=== PATIENT | male | born 1980 | race Two or more races ===

== ENCOUNTER 2020-08-20 09:28 | Inpatient (IN) | payer OTHER ==
[~2020-08-20] VITALS: Ht 172.7 cm; Wt 79.7 kg
[2020-08-20] MEDS ORDERED: DexAMETHasone SOD PHOS 10MG/1ML VIAL INJ IV ONE (10:15)
[2020-08-20] MEDS ORDERED: DOXYCYCLINE 100MG/250ML 250 ML IV ONE (10:15)
[2020-08-20 10:24] LABS: Basophils # (auto) 0 10 ^3/uL (0-0.2); Basophils % (auto) 0.1 % (0.0-2.0); Eosinophils # (auto) 0 10 ^3/uL (0-0.8); Hematocrit 44.2 % (41.0-53.0); Hemoglobin 14.8 g/dL (13.5-17.5); Lymphocytes # (auto) 0.5 10 ^3/uL (0.4-5.4); Lymphocytes % (auto) 3.8 % (10.0-50.0); Mean Corpuscular Hemoglobin 29.8 pg (28.0-32.0); Mean Corpuscular Hgb Conc. 33.5 g/dL (32.0-36.0); Mean Corpuscular Volume 88.7 fL (80.0-100.0); Monocytes # (auto) 0.2 10 ^3/uL (0-1.3); Monocytes % (auto) 1.2 % (0.0-12.0); Neutrophils # (auto) 13.3 10 ^3/uL (1.6-8.6); Neutrophils % (auto) 94.9 % (37.0-80.0); Nucleated Red Blood Cells % 0.1 %; Platelet Count (auto) 207 10^3/uL (140-450); Red Blood Cells 4.98 10^6/uL (4.5-5.90); Red Cell Distribution Width 13.7 % (11.8-14.3); White Blood Cell 14.1 10^3/uL (4.4-10.8)
[2020-08-20 10:37] LABS: Anion Gap 6 (5-15); Blood Urea Nitrogen 19 mg/dL (7-18); Calcium 9.2 mg/dL (8.5-10.1); Carbon Dioxide 25 mmol/L (21-32); Chloride 108 mmol/L (98-107); Glucose 130 mg/dL (74-106); Potassium 3.9 mmol/L (3.5-5.1); Sodium 139 mmol/L (136-145)
[2020-08-20 10:44] LABS: Alanine Aminotransferase 129 U/L (16-61); Alkaline Phosphatase 106 U/L (45-117); Aspartate Aminotransferase 60 U/L (15-37); BUN/Creatinine Ratio 15.7; Bilirubin, Total 1.1 mg/dL (0.2-1.0); GFR African American 85 mL/min; GFR Non-African American 70 mL/min; Total Protein 8.2 g/dL (6.4-8.2)
[2020-08-20] MEDS ORDERED: MORPHINE SULF INJ 2 MG/ML SYRINGE 1ML IV PRN ×2 (11:30→12:15)
[2020-08-20] MEDS ORDERED: NITROGLYCERIN 0.4 MG SL TAB SL PRN (11:30)
[2020-08-20] MEDS ORDERED: REMDESIVIR PER PHARMACY 0 ML IV SCH (12:00)
[2020-08-20] MEDS ORDERED: TEMAZEPAM 15 MG CAP PO PRN (12:15)
[2020-08-20] MEDS ORDERED: PROMETHAZINE HCL 25 MG/ML 1ML IV PRN (12:15)
[2020-08-20] MEDS ORDERED: DEXTROSE (50%) 50ML SYRG IV PRN (12:15)
[2020-08-20] MEDS ORDERED: traMADol HCL 50 MG TAB PO PRN (12:15)
[2020-08-20] MEDS: SODIUM CHLORIDE 0.9% 1,000 ML IV SCH (14:00)
[2020-08-20] MEDS: ACCU-CHEK COMFORT CURVE STRIP VI SCH ×2 (18:11→21:51)
[2020-08-20] MEDS: FAMOTIDINE 20 MG TAB PO SCH (21:52)
[2020-08-20] MEDS: ENOXAPARIN SOD 40 MG/0.4 ML SYRINGE SC SCH (21:52)
[2020-08-20] MEDS: BUDESONIDE (INHALATION) 180 MCG IH IN SCH (22:00)
[2020-08-21 05:00] VITALS: BP 126/76
[2020-08-21] MEDS: ACETAMINOPHEN 500 MG TAB PO PRN (06:00)
[2020-08-21] MEDS: SODIUM CHLORIDE 0.9% 1,000 ML IV SCH (06:35)
[2020-08-21] MEDS: ACCU-CHEK COMFORT CURVE STRIP VI SCH (06:35)
[2020-08-21 09:00] VITALS: BP 121/81
[2020-08-21 09:09] LABS: Basophils # (auto) 0 10 ^3/uL (0-0.2); Basophils % (auto) 0.1 % (0.0-2.0); Eosinophils # (auto) 0 10 ^3/uL (0-0.8); Hematocrit 40.2 % (41.0-53.0); Hemoglobin 13.6 g/dL (13.5-17.5); Lymphocytes # (auto) 0.7 10 ^3/uL (0.4-5.4); Lymphocytes % (auto) 5.4 % (10.0-50.0); Mean Corpuscular Hemoglobin 30.2 pg (28.0-32.0); Mean Corpuscular Hgb Conc. 33.9 g/dL (32.0-36.0); Mean Corpuscular Volume 89.3 fL (80.0-100.0); Monocytes # (auto) 0.4 10 ^3/uL (0-1.3); Neutrophils % (auto) 91.5 % (37.0-80.0); Platelet Count (auto) 221 10^3/uL (140-450); Red Blood Cells 4.51 10^6/uL (4.5-5.90); Red Cell Distribution Width 13.9 % (11.8-14.3); White Blood Cell 13.1 10^3/uL (4.4-10.8)
[2020-08-21 09:28] LABS: Albumin 2.7 g/dL (3.4-5.0); Calcium 8.9 mg/dL (8.5-10.1); Potassium 4.2 mmol/L (3.5-5.1)
[2020-08-21 09:35] LABS: Bilirubin, Total 0.5 mg/dL (0.2-1.0); Total Protein 7.2 g/dL (6.4-8.2)
[2020-08-21] MEDS: BUDESONIDE (INHALATION) 180 MCG IH IN SCH ×2 (10:00→19:00)
[2020-08-21] MEDS: levoFLOXacin 500MG 100 ML IV SCH (10:12)
[2020-08-21] MEDS: DexAMETHasone SOD PHOS 10MG/1ML VIAL INJ IV SCH (10:13)
[2020-08-21] MEDS: ZINC SULFATE 220mg CAP or TAB PO SCH (10:13)
[2020-08-21] MEDS: ENOXAPARIN SOD 40 MG/0.4 ML SYRINGE SC SCH ×2 (10:13→21:06)
[2020-08-21] MEDS: ASCORBIC ACID 1,000 MG TAB PO SCH (10:14)
[2020-08-21] MEDS: FAMOTIDINE 20 MG TAB PO SCH ×2 (10:14→21:06)
[2020-08-21] MEDS: CHOLECALCIFEROL (VITD3) 2,000 UNIT CAP PO SCH (10:14)
[2020-08-21] MEDS ORDERED: REMDESIVIR PER PHARMACY 0 ML IV SCH (11:15)
[2020-08-21 12:00] VITALS: BP 131/79
[2020-08-21 13:00] VITALS: BP 131/79
[2020-08-21] MEDS ORDERED: POTASSIUM CHL 20 Meq TABLET PO ONE (13:30)
[2020-08-21] MEDS ORDERED: FUROSEMIDE 20 MG/2 ML VIAL IV ONE (13:30)
[2020-08-21] MEDS ORDERED: REMDESIVIR 200 MG in NS 210ml LOADING DOSE ADULT IV ONE (15:00)
[2020-08-21 16:25] LABS: Basophils # (auto) 0 10 ^3/uL (0-0.2); Basophils % (auto) 0.1 % (0.0-2.0); Eosinophils # (auto) 0 10 ^3/uL (0-0.8); Hemoglobin 15.4 g/dL (13.5-17.5); Lymphocytes # (auto) 0.9 10 ^3/uL (0.4-5.4); Lymphocytes % (auto) 5.7 % (10.0-50.0); Mean Corpuscular Hemoglobin 30.5 pg (28.0-32.0); Mean Corpuscular Hgb Conc. 34.2 g/dL (32.0-36.0); Mean Corpuscular Volume 89.2 fL (80.0-100.0); Monocytes # (auto) 0.3 10 ^3/uL (0-1.3); Monocytes % (auto) 2.3 % (0.0-12.0); Neutrophils # (auto) 14.1 10 ^3/uL (1.6-8.6); Neutrophils % (auto) 91.9 % (37.0-80.0); Nucleated Red Blood Cells % 0.1 %; Platelet Count (auto) 288 10^3/uL (140-450); Red Blood Cells 5.04 10^6/uL (4.5-5.90); Red Cell Distribution Width 13.8 % (11.8-14.3); White Blood Cell 15.3 10^3/uL (4.4-10.8)
[2020-08-21 17:00] VITALS: BP 106/73
[2020-08-21 22:00] VITALS: BP 120/79
[2020-08-22 05:00] VITALS: BP 126/86
[2020-08-22] MEDS: BUDESONIDE (INHALATION) 180 MCG IH IN SCH ×2 (06:31→22:00)
[2020-08-22 06:55] LABS: INR 1.14 (0.9-1.15); Partial Thromboplastin Time 28.4 sec (23.0-31.2)
[2020-08-22 07:12] LABS: Albumin 2.9 g/dL (3.4-5.0); Calcium 9.1 mg/dL (8.5-10.1); Potassium 4.4 mmol/L (3.5-5.1)
[2020-08-22 07:15] LABS: BUN/Creatinine Ratio 32.6
[2020-08-22 07:17] LABS: Bilirubin, Total 0.6 mg/dL (0.2-1.0); Total Protein 7.9 g/dL (6.4-8.2)
[2020-08-22 09:00] VITALS: BP 145/81
[2020-08-22] MEDS: levoFLOXacin 500MG 100 ML IV SCH (09:53)
[2020-08-22] MEDS: DexAMETHasone SOD PHOS 10MG/1ML VIAL INJ IV SCH (09:53)
[2020-08-22] MEDS: ZINC SULFATE 220mg CAP or TAB PO SCH (09:53)
[2020-08-22] MEDS: CHOLECALCIFEROL (VITD3) 2,000 UNIT CAP PO SCH (09:54)
[2020-08-22] MEDS: FAMOTIDINE 20 MG TAB PO SCH ×2 (09:54→22:30)
[2020-08-22] MEDS: ENOXAPARIN SOD 40 MG/0.4 ML SYRINGE SC SCH ×2 (09:54→22:30)
[2020-08-22] MEDS: ASCORBIC ACID 1,000 MG TAB PO SCH (09:54)
[2020-08-22] MEDS: ACETAMINOPHEN 500 MG TAB PO PRN ×2 (09:55→22:31)
[2020-08-22 13:00] VITALS: BP 127/80
[2020-08-22] MEDS: REMDESIVIR 100 MG in SODIUM CHL 0.9% 250 ML IV SCH (16:46)
[2020-08-22 17:00] VITALS: BP 125/78
[2020-08-22 21:44] VITALS: BP 135/77
[2020-08-23 05:12] VITALS: BP 106/70
[2020-08-23 07:05] LABS: Hematocrit 46.9 % (41.0-53.0); Hemoglobin 15.8 g/dL (13.5-17.5); Mean Corpuscular Hemoglobin 30.1 pg (28.0-32.0); Mean Corpuscular Hgb Conc. 33.7 g/dL (32.0-36.0); Mean Corpuscular Volume 89.3 fL (80.0-100.0); Platelet Count (auto) 278 10^3/uL (140-450); Red Blood Cells 5.25 10^6/uL (4.5-5.90); Red Cell Distribution Width 14.1 % (11.8-14.3); White Blood Cell 14.5 10^3/uL (4.4-10.8)
[2020-08-23 07:30] LABS: Basophils % (manual) 0 (0.0-2.0); Blast Cells 0; Eosinophils % (manual) 0 (0-7); Promyelocytes % 0; Reactive Lymphocytes 0
[2020-08-23 07:37] LABS: Calcium 9.5 mg/dL (8.5-10.1)
[2020-08-23 07:42] LABS: BUN/Creatinine Ratio 32.7; Bilirubin, Total 0.8 mg/dL (0.2-1.0); Potassium 4.3 mmol/L (3.5-5.1); Total Protein 8.1 g/dL (6.4-8.2)
[2020-08-23] MEDS: ALBUTEROL SULF HFA 90MCG INH 200DOSE IN PRN (08:27)
[2020-08-23] MEDS: BUDESONIDE (INHALATION) 180 MCG IH IN SCH ×2 (08:27→22:00)
[2020-08-23 09:00] VITALS: BP 96/55
[2020-08-23] MEDS: DexAMETHasone SOD PHOS 10MG/1ML VIAL INJ IV SCH (10:14)
[2020-08-23] MEDS: ZINC SULFATE 220mg CAP or TAB PO SCH (10:16)
[2020-08-23] MEDS: ASCORBIC ACID 1,000 MG TAB PO SCH (10:16)
[2020-08-23] MEDS: levoFLOXacin 500MG 100 ML IV SCH (10:16)
[2020-08-23] MEDS: FAMOTIDINE 20 MG TAB PO SCH ×2 (10:16→22:05)
[2020-08-23] MEDS: CHOLECALCIFEROL (VITD3) 2,000 UNIT CAP PO SCH (10:16)
[2020-08-23] MEDS: ENOXAPARIN SOD 40 MG/0.4 ML SYRINGE SC SCH ×2 (10:16→22:05)
[2020-08-23 12:50] LABS: Band Neutrophils % (manual) 2; Lymphocytes % (manual) 9 (10.0-50.0); Metamyelocytes % 3; Monocytes % (manual) 6 (0-12); Myelocytes % 3
[2020-08-23 13:14] VITALS: BP 93/59
[2020-08-23] MEDS: REMDESIVIR 100 MG in SODIUM CHL 0.9% 250 ML IV SCH (16:12)
[2020-08-23 16:50] VITALS: BP 108/75
[2020-08-23] MEDS: ENSURE CLEAR Mixed Berry 8oz Carton PO SCH (18:00)
[2020-08-23 21:58] VITALS: BP 102/74
[2020-08-24 05:24] VITALS: BP 102/62
[2020-08-24] MEDS: BUDESONIDE (INHALATION) 180 MCG IH IN SCH ×2 (06:32→22:00)
[2020-08-24] MEDS: ALBUTEROL SULF HFA 90MCG INH 200DOSE IN PRN (06:32)
[2020-08-24 07:05] LABS: Hematocrit 45.4 % (41.0-53.0); Hemoglobin 15.4 g/dL (13.5-17.5); Mean Corpuscular Hemoglobin 30.2 pg (28.0-32.0); Platelet Count (auto) 276 10^3/uL (140-450); White Blood Cell 16.4 10^3/uL (4.4-10.8)
[2020-08-24 07:23] LABS: Potassium 4.4 mmol/L (3.5-5.1)
[2020-08-24 07:24] LABS: Basophils % (manual) 0 (0.0-2.0); Blast Cells 0; Promyelocytes % 0; Reactive Lymphocytes 0
[2020-08-24 07:40] LABS: Albumin 2.8 g/dL (3.4-5.0); BUN/Creatinine Ratio 30.1; Bilirubin, Total 0.8 mg/dL (0.2-1.0); Calcium 9.2 mg/dL (8.5-10.1); Total Protein 7.7 g/dL (6.4-8.2)
[2020-08-24] MEDS: ENSURE CLEAR Mixed Berry 8oz Carton PO SCH ×3 (08:00→18:00)
[2020-08-24 08:35] VITALS: BP 99/64
[2020-08-24 08:56] LABS: Band Neutrophils % (manual) 1; Eosinophils % (manual) 1 (0-7); Lymphocytes % (manual) 10 (10.0-50.0); Metamyelocytes % 5; Monocytes % (manual) 2 (0-12); Myelocytes % 3
[2020-08-24] MEDS: ENOXAPARIN SOD 40 MG/0.4 ML SYRINGE SC SCH (09:18)
[2020-08-24] MEDS: FAMOTIDINE 20 MG TAB PO SCH ×2 (09:18→21:51)
[2020-08-24] MEDS: DexAMETHasone SOD PHOS 10MG/1ML VIAL INJ IV SCH (09:18)
[2020-08-24] MEDS: ZINC SULFATE 220mg CAP or TAB PO SCH (09:19)
[2020-08-24] MEDS: levoFLOXacin 500MG 100 ML IV SCH (09:19)
[2020-08-24] MEDS: ASCORBIC ACID 1,000 MG TAB PO SCH (09:19)
[2020-08-24] MEDS: CHOLECALCIFEROL (VITD3) 2,000 UNIT CAP PO SCH (09:20)
[2020-08-24 13:00] VITALS: BP 104/68
[2020-08-24] MEDS ORDERED: POTASSIUM CHL 20 Meq TABLET PO ONE (14:00)
[2020-08-24] MEDS ORDERED: FUROSEMIDE 20 MG/2 ML VIAL IV ONE (14:00)
[2020-08-24 16:00] VITALS: BP 103/62
[2020-08-24] MEDS: REMDESIVIR 100 MG in SODIUM CHL 0.9% 250 ML IV SCH (17:54)
[2020-08-24] MEDS: ENOXAPARIN SOD 80 MG/0.8ML SYRINGE SC SCH (21:51)
[2020-08-24 22:00] VITALS: BP 107/65
[2020-08-25] VITALS (8 sets, daily range): BP systolic 96–118; BP diastolic 58–75
[2020-08-25 07:26] LABS: Hematocrit 46.8 % (41.0-53.0); Hemoglobin 15.7 g/dL (13.5-17.5); Mean Corpuscular Hemoglobin 29.9 pg (28.0-32.0); Mean Corpuscular Hgb Conc. 33.5 g/dL (32.0-36.0); Mean Corpuscular Volume 89.2 fL (80.0-100.0); Platelet Count (auto) 275 10^3/uL (140-450); Red Blood Cells 5.25 10^6/uL (4.5-5.90); Red Cell Distribution Width 13.9 % (11.8-14.3); White Blood Cell 17.4 10^3/uL (4.4-10.8)
[2020-08-25 07:37] LABS: Calcium 8.8 mg/dL (8.5-10.1); Potassium 3.8 mmol/L (3.5-5.1)
[2020-08-25 07:39] LABS: BUN/Creatinine Ratio 29.2
[2020-08-25 07:49] LABS: Basophils % (manual) 0 (0.0-2.0); Eosinophils % (manual) 0 (0-7); Metamyelocytes % 0; Promyelocytes % 0; Reactive Lymphocytes 0
[2020-08-25] MEDS: ENSURE CLEAR Mixed Berry 8oz Carton PO SCH ×3 (08:00→18:21)
[2020-08-25] MEDS: DexAMETHasone SOD PHOS 10MG/1ML VIAL INJ IV SCH ×2 (09:48→21:44)
[2020-08-25] MEDS: levoFLOXacin 500MG 100 ML IV SCH (09:50)
[2020-08-25] MEDS: FUROSEMIDE 20 MG/2 ML VIAL IV SCH (09:51)
[2020-08-25] MEDS: CHOLECALCIFEROL (VITD3) 2,000 UNIT CAP PO SCH (09:52)
[2020-08-25] MEDS: ENOXAPARIN SOD 80 MG/0.8ML SYRINGE SC SCH ×2 (09:52→21:44)
[2020-08-25] MEDS: ASCORBIC ACID 1,000 MG TAB PO SCH (09:52)
[2020-08-25] MEDS: FAMOTIDINE 20 MG TAB PO SCH (09:53)
[2020-08-25] MEDS: POTASSIUM CHL 20 Meq TABLET PO SCH (09:54)
[2020-08-25] MEDS: ZINC SULFATE 220mg CAP or TAB PO SCH (09:54)
[2020-08-25] MEDS: ACETAMINOPHEN 500 MG TAB PO PRN (09:55)
[2020-08-25 11:13] LABS: Band Neutrophils % (manual) 7; Blast Cells 1; Lymphocytes % (manual) 5 (10.0-50.0); Monocytes % (manual) 2 (0-12); Myelocytes % 1
[2020-08-25] MEDS: REMDESIVIR 100 MG in SODIUM CHL 0.9% 250 ML IV SCH (16:28)
[2020-08-25 17:26] LABS: CRP High Sensitivity 18.7 mg/dL (< 0.3)
[2020-08-25 17:36] LABS: Urine Bacteria NONE SEEN /hpf (None Seen); Urine Blood Negative /uL (Negative); Urine Specific Gravity 1.028 (1.001-1.035); Urine WBC <1 /hpf (0 - 3)
[2020-08-25] MEDS: BUDESONIDE (INHALATION) 180 MCG IH IN SCH (19:16)
[2020-08-25] MEDS: ALBUTEROL SULF HFA 90MCG INH 200DOSE IN PRN (19:17)
[2020-08-25] MEDS ORDERED: methylPREDNISolone SOD SUCC 40 MG/ML VL IV ONE (20:00)
[2020-08-25] MEDS ORDERED: ACETAMINOPHEN 650 mg PER 20.3 mL UD PO ONE (20:00)
[2020-08-25] MEDS ORDERED: diphenhdrAMINE HCL 50 MG/1 ML VL IV ONE (20:00)
[2020-08-25] MEDS ORDERED: TOCILIZUMAB 400 MG in SODIUM CHL 0.9% 80 ML IV ONE (20:30)
[2020-08-25] MEDS: FAMOTIDINE (10MG/ML) 2ML VL IV SCH (21:44)
[2020-08-26 04:00] VITALS: BP 100/72
[2020-08-26] MEDS: ENSURE CLEAR Mixed Berry 8oz Carton PO SCH ×3 (08:00→17:53)
[2020-08-26] MEDS ORDERED: diphenhdrAMINE HCL 50 MG/1 ML VL IV ONE (08:30)
[2020-08-26] MEDS ORDERED: ACETAMINOPHEN 650 mg PER 20.3 mL UD PO ONE (08:30)
[2020-08-26] MEDS ORDERED: methylPREDNISolone SOD SUCC 40 MG/ML VL IV ONE (08:30)
[2020-08-26 09:00] VITALS: BP 100/62
[2020-08-26] MEDS ORDERED: TOCILIZUMAB 400 MG in SODIUM CHL 0.9% 80 ML IV ONE (09:00)
[2020-08-26] MEDS: BUDESONIDE (INHALATION) 180 MCG IH IN SCH ×2 (10:00→19:36)
[2020-08-26] MEDS: FUROSEMIDE 20 MG/2 ML VIAL IV SCH (11:30)
[2020-08-26] MEDS: levoFLOXacin 500MG 100 ML IV SCH (11:58)
[2020-08-26] MEDS: FAMOTIDINE (10MG/ML) 2ML VL IV SCH ×2 (11:59→22:07)
[2020-08-26] MEDS: DexAMETHasone SOD PHOS 10MG/1ML VIAL INJ IV SCH ×2 (11:59→22:07)
[2020-08-26] MEDS: ENOXAPARIN SOD 80 MG/0.8ML SYRINGE SC SCH ×2 (12:00→22:07)
[2020-08-26] MEDS: POTASSIUM CHL 20 Meq TABLET PO SCH (12:00)
[2020-08-26] MEDS: ZINC SULFATE 220mg CAP or TAB PO SCH (12:01)
[2020-08-26] MEDS: CHOLECALCIFEROL (VITD3) 2,000 UNIT CAP PO SCH (12:01)
[2020-08-26] MEDS: ASCORBIC ACID 1,000 MG TAB PO SCH (12:01)
[2020-08-26 13:00] VITALS: BP 91/54
[2020-08-26 17:00] VITALS: BP 104/75
[2020-08-26] MEDS: ALBUTEROL SULF HFA 90MCG INH 200DOSE IN PRN (19:36)
[2020-08-26 21:00] VITALS: BP 119/77
[2020-08-27 06:50] LABS: Hematocrit 47.4 % (41.0-53.0); Hemoglobin 15.6 g/dL (13.5-17.5); Mean Corpuscular Hemoglobin 29.3 pg (28.0-32.0); Mean Corpuscular Hgb Conc. 32.9 g/dL (32.0-36.0); Mean Corpuscular Volume 89.2 fL (80.0-100.0); Platelet Count (auto) 355 10^3/uL (140-450); Red Blood Cells 5.31 10^6/uL (4.5-5.90); Red Cell Distribution Width 13.9 % (11.8-14.3); White Blood Cell 13.1 10^3/uL (4.4-10.8)
[2020-08-27 07:19] LABS: Basophils % (manual) 0 (0.0-2.0); Blast Cells 0; Eosinophils % (manual) 0 (0-7); Myelocytes % 0; Promyelocytes % 0; Reactive Lymphocytes 0
[2020-08-27] MEDS: ALBUTEROL SULF HFA 90MCG INH 200DOSE IN PRN ×2 (07:24→21:10)
[2020-08-27] MEDS: BUDESONIDE (INHALATION) 180 MCG IH IN SCH ×2 (07:24→21:10)
[2020-08-27 07:38] LABS: BUN/Creatinine Ratio 32.3; Calcium 9.1 mg/dL (8.5-10.1); Potassium 4.8 mmol/L (3.5-5.1)
[2020-08-27 08:00] VITALS: BP 100/59
[2020-08-27] MEDS: ENSURE CLEAR Mixed Berry 8oz Carton PO SCH ×3 (08:00→18:00)
[2020-08-27] MEDS: POTASSIUM CHL 20 Meq TABLET PO SCH (10:00)
[2020-08-27] MEDS: CHOLECALCIFEROL (VITD3) 2,000 UNIT CAP PO SCH (10:00)
[2020-08-27] MEDS: DexAMETHasone SOD PHOS 10MG/1ML VIAL INJ IV SCH ×2 (11:34→20:32)
[2020-08-27] MEDS: FUROSEMIDE 20 MG/2 ML VIAL IV SCH (11:35)
[2020-08-27] MEDS: ASCORBIC ACID 1,000 MG TAB PO SCH (11:36)
[2020-08-27] MEDS: levoFLOXacin 500MG 100 ML IV SCH (11:36)
[2020-08-27] MEDS: FAMOTIDINE (10MG/ML) 2ML VL IV SCH ×2 (11:36→20:32)
[2020-08-27] MEDS: ENOXAPARIN SOD 80 MG/0.8ML SYRINGE SC SCH ×2 (11:37→20:32)
[2020-08-27] MEDS: ZINC SULFATE 220mg CAP or TAB PO SCH (11:38)
[2020-08-27 12:24] LABS: Band Neutrophils % (manual) 9; Lymphocytes % (manual) 5 (10.0-50.0); Metamyelocytes % 1; Monocytes % (manual) 3 (0-12)
[2020-08-27 16:00] VITALS: BP 104/58
[2020-08-27 20:00] VITALS: BP 95/58
[2020-08-27 21:53] VITALS: BP 95/58
[2020-08-28 05:00] VITALS: BP 99/68
[2020-08-28] MEDS: ENSURE CLEAR Mixed Berry 8oz Carton PO SCH ×3 (08:00→19:41)
[2020-08-28 09:28] VITALS: BP 101/54
[2020-08-28] MEDS: levoFLOXacin 500MG 100 ML IV SCH (10:01)
[2020-08-28] MEDS: ZINC SULFATE 220mg CAP or TAB PO SCH (10:01)
[2020-08-28] MEDS: ENOXAPARIN SOD 80 MG/0.8ML SYRINGE SC SCH ×2 (10:01→21:25)
[2020-08-28] MEDS: POTASSIUM CHL 20 Meq TABLET PO SCH (10:01)
[2020-08-28] MEDS: DexAMETHasone SOD PHOS 10MG/1ML VIAL INJ IV SCH ×2 (10:02→21:25)
[2020-08-28] MEDS: FUROSEMIDE 20 MG/2 ML VIAL IV SCH (10:04)
[2020-08-28] MEDS: FAMOTIDINE (10MG/ML) 2ML VL IV SCH ×2 (10:06→21:25)
[2020-08-28] MEDS: ASCORBIC ACID 1,000 MG TAB PO SCH (10:09)
[2020-08-28] MEDS: CHOLECALCIFEROL (VITD3) 2,000 UNIT CAP PO SCH (10:10)
[2020-08-28 16:22] VITALS: BP 81/51
[2020-08-28 17:15] VITALS: BP 97/51
[2020-08-28] MEDS: BUDESONIDE (INHALATION) 180 MCG IH IN SCH (22:00)
[2020-08-28 22:42] VITALS: BP 99/61
[2020-08-29 04:41] VITALS: BP 93/59
[2020-08-29 06:00] LABS: Basophils # (auto) 0 10 ^3/uL (0-0.2); Basophils % (auto) 0.1 % (0.0-2.0); Eosinophils # (auto) 0 10 ^3/uL (0-0.8); Eosinophils % (auto) 0.4 % (0.0-7.0); Lymphocytes # (auto) 0.5 10 ^3/uL (0.4-5.4); Lymphocytes % (auto) 6.7 % (10.0-50.0); Mean Corpuscular Hemoglobin 30.5 pg (28.0-32.0); Mean Corpuscular Hgb Conc. 34.1 g/dL (32.0-36.0); Mean Corpuscular Volume 89.5 fL (80.0-100.0); Monocytes # (auto) 0.2 10 ^3/uL (0-1.3); Monocytes % (auto) 2.4 % (0.0-12.0); Neutrophils # (auto) 7.2 10 ^3/uL (1.6-8.6); Neutrophils % (auto) 90.4 % (37.0-80.0); Platelet Count (auto) 314 10^3/uL (140-450); Red Blood Cells 4.92 10^6/uL (4.5-5.90); Red Cell Distribution Width 13.7 % (11.8-14.3)
[2020-08-29 06:26] LABS: Potassium 3.8 mmol/L (3.5-5.1)
[2020-08-29 06:37] LABS: Albumin 2.4 g/dL (3.4-5.0); BUN/Creatinine Ratio 37.2; Bilirubin, Total 0.6 mg/dL (0.2-1.0); Calcium 8.7 mg/dL (8.5-10.1); Total Protein 6.4 g/dL (6.4-8.2)
[2020-08-29] MEDS: BUDESONIDE (INHALATION) 180 MCG IH IN SCH ×3 (07:40→22:00)
[2020-08-29 08:00] VITALS: BP 94/59
[2020-08-29] MEDS: ENSURE CLEAR Mixed Berry 8oz Carton PO SCH ×2 (09:26→12:00)
[2020-08-29] MEDS: DexAMETHasone SOD PHOS 10MG/1ML VIAL INJ IV SCH ×2 (09:53→22:24)
[2020-08-29] MEDS: FUROSEMIDE 20 MG/2 ML VIAL IV SCH (09:53)
[2020-08-29] MEDS: FAMOTIDINE (10MG/ML) 2ML VL IV SCH ×2 (09:54→22:23)
[2020-08-29] MEDS: ASCORBIC ACID 1,000 MG TAB PO SCH (09:54)
[2020-08-29] MEDS: ZINC SULFATE 220mg CAP or TAB PO SCH (09:54)
[2020-08-29] MEDS: CHOLECALCIFEROL (VITD3) 2,000 UNIT CAP PO SCH (09:54)
[2020-08-29] MEDS: ENOXAPARIN SOD 80 MG/0.8ML SYRINGE SC SCH ×2 (09:55→22:23)
[2020-08-29] MEDS: levoFLOXacin 500MG 100 ML IV SCH (09:55)
[2020-08-29] MEDS: POTASSIUM CHL 20 Meq TABLET PO SCH (09:58)
[2020-08-29 16:00] VITALS: BP 103/62
[2020-08-30] VITALS: BP 89/50
[2020-08-30] MEDS: ENSURE CLEAR Mixed Berry 8oz Carton PO SCH ×4 (07:27→18:32)
[2020-08-30 07:50] VITALS: BP_SYST 140; BP_SYST 90; BP_DIAS 59; BP_DIAS 86
[2020-08-30] MEDS: BUDESONIDE (INHALATION) 180 MCG IH IN SCH (09:38)
[2020-08-30] MEDS: levoFLOXacin 500MG 100 ML IV SCH (09:40)
[2020-08-30] MEDS: FUROSEMIDE 20 MG/2 ML VIAL IV SCH (09:40)
[2020-08-30] MEDS: DexAMETHasone SOD PHOS 10MG/1ML VIAL INJ IV SCH ×2 (09:40→21:06)
[2020-08-30] MEDS: ENOXAPARIN SOD 80 MG/0.8ML SYRINGE SC SCH ×2 (09:41→21:07)
[2020-08-30] MEDS: ZINC SULFATE 220mg CAP or TAB PO SCH (09:41)
[2020-08-30] MEDS: FAMOTIDINE (10MG/ML) 2ML VL IV SCH ×2 (09:41→21:06)
[2020-08-30] MEDS: CHOLECALCIFEROL (VITD3) 2,000 UNIT CAP PO SCH (09:41)
[2020-08-30] MEDS: ASCORBIC ACID 1,000 MG TAB PO SCH (09:41)
[2020-08-30] MEDS: POTASSIUM CHL 20 Meq TABLET PO SCH (09:41)
[2020-08-30 16:00] VITALS: BP 84/52
[2020-08-30 23:26] VITALS: BP 78/51
[2020-08-30] MEDS ORDERED: ALBUMIN 5% 250 ML IV ONE (23:30)
[2020-08-31] VITALS: BP 86/56
[2020-08-31] MEDS: SODIUM CHLORIDE 0.9% 1,000 ML IV SCH ×2 (00:04→16:10)
[2020-08-31] MEDS: BUDESONIDE (INHALATION) 180 MCG IH IN SCH ×3 (01:59→22:00)
[2020-08-31 06:00] VITALS: BP 101/58
[2020-08-31] MEDS: ALBUTEROL SULF HFA 90MCG INH 200DOSE IN PRN (07:02)
[2020-08-31 08:00] VITALS: BP 92/51
[2020-08-31] MEDS: ENSURE CLEAR Mixed Berry 8oz Carton PO SCH ×3 (08:00→18:00)
[2020-08-31] MEDS: levoFLOXacin 500MG 100 ML IV SCH (08:59)
[2020-08-31 09:00] VITALS: BP 92/51
[2020-08-31] MEDS: FAMOTIDINE (10MG/ML) 2ML VL IV SCH ×2 (09:00→21:09)
[2020-08-31] MEDS: DexAMETHasone SOD PHOS 10MG/1ML VIAL INJ IV SCH ×2 (09:00→21:09)
[2020-08-31] MEDS: ZINC SULFATE 220mg CAP or TAB PO SCH (09:00)
[2020-08-31] MEDS: POTASSIUM CHL 20 Meq TABLET PO SCH (09:00)
[2020-08-31] MEDS: ENOXAPARIN SOD 80 MG/0.8ML SYRINGE SC SCH ×2 (09:00→21:10)
[2020-08-31] MEDS: ASCORBIC ACID 1,000 MG TAB PO SCH (09:00)
[2020-08-31] MEDS: CHOLECALCIFEROL (VITD3) 2,000 UNIT CAP PO SCH (09:01)
[2020-08-31 16:25] VITALS: BP 100/57
[2020-08-31] MEDS: PROMETHAZINE W/CODEINE 5 ML ORAL SYRUP PO PRN (21:14)
[2020-08-31 23:59] VITALS: BP 103/65
[2020-09-01] MEDS: SODIUM CHLORIDE 0.9% 1,000 ML IV SCH (04:57)
[2020-09-01 06:16] LABS: Hematocrit 40.6 % (41.0-53.0); Hemoglobin 13.7 g/dL (13.5-17.5); Mean Corpuscular Hemoglobin 30.2 pg (28.0-32.0); Mean Corpuscular Hgb Conc. 33.8 g/dL (32.0-36.0); Mean Corpuscular Volume 89.3 fL (80.0-100.0); Platelet Count (auto) 292 10^3/uL (140-450); Red Blood Cells 4.55 10^6/uL (4.5-5.90); Red Cell Distribution Width 13.8 % (11.8-14.3); White Blood Cell 9.2 10^3/uL (4.4-10.8)
[2020-09-01 06:42] LABS: Band Neutrophils % (manual) 0; Basophils % (manual) 0 (0.0-2.0); Blast Cells 0; Eosinophils % (manual) 0 (0-7); Metamyelocytes % 0; Myelocytes % 0; Promyelocytes % 0; Reactive Lymphocytes 0
[2020-09-01] MEDS: BUDESONIDE (INHALATION) 180 MCG IH IN SCH ×2 (07:23→19:09)
[2020-09-01] MEDS: ALBUTEROL SULF HFA 90MCG INH 200DOSE IN PRN ×2 (07:23→19:09)
[2020-09-01 07:48] LABS: BUN/Creatinine Ratio 22.5; Calcium 8.2 mg/dL (8.5-10.1)
[2020-09-01 08:00] VITALS: BP 100/63
[2020-09-01 08:08] LABS: Lymphocytes % (manual) 6 (10.0-50.0); Monocytes % (manual) 4 (0-12)
[2020-09-01] MEDS: FAMOTIDINE (10MG/ML) 2ML VL IV SCH ×2 (11:08→21:25)
[2020-09-01] MEDS: DexAMETHasone SOD PHOS 10MG/1ML VIAL INJ IV SCH ×2 (11:08→21:25)
[2020-09-01] MEDS: ZINC SULFATE 220mg CAP or TAB PO SCH (11:08)
[2020-09-01] MEDS: ENOXAPARIN SOD 80 MG/0.8ML SYRINGE SC SCH ×2 (11:09→21:26)
[2020-09-01] MEDS: levoFLOXacin 500MG 100 ML IV SCH (11:09)
[2020-09-01] MEDS: ASCORBIC ACID 1,000 MG TAB PO SCH (11:09)
[2020-09-01] MEDS: CHOLECALCIFEROL (VITD3) 2,000 UNIT CAP PO SCH (11:09)
[2020-09-01] MEDS: ENSURE CLEAR Mixed Berry 8oz Carton PO SCH ×3 (11:10→18:42)
[2020-09-01 16:00] VITALS: BP 98/55
[2020-09-02] VITALS: BP 98/55
[2020-09-02 06:53] VITALS: BP 110/65
[2020-09-02 08:00] VITALS: BP 100/62
[2020-09-02] MEDS: ALBUTEROL SULF HFA 90MCG INH 200DOSE IN PRN ×2 (09:05→19:45)
[2020-09-02] MEDS: BUDESONIDE (INHALATION) 180 MCG IH IN SCH ×2 (09:05→19:45)
[2020-09-02] MEDS: ENSURE CLEAR Mixed Berry 8oz Carton PO SCH ×3 (11:06→18:24)
[2020-09-02] MEDS: DexAMETHasone SOD PHOS 10MG/1ML VIAL INJ IV SCH ×2 (11:06→22:04)
[2020-09-02] MEDS: FAMOTIDINE (10MG/ML) 2ML VL IV SCH ×2 (11:07→22:04)
[2020-09-02] MEDS: ASCORBIC ACID 1,000 MG TAB PO SCH (11:07)
[2020-09-02] MEDS: levoFLOXacin 500MG 100 ML IV SCH (11:07)
[2020-09-02] MEDS: ZINC SULFATE 220mg CAP or TAB PO SCH (11:07)
[2020-09-02] MEDS: ENOXAPARIN SOD 80 MG/0.8ML SYRINGE SC SCH ×2 (11:08→22:05)
[2020-09-02] MEDS: CHOLECALCIFEROL (VITD3) 2,000 UNIT CAP PO SCH (11:08)
[2020-09-02 16:00] VITALS: BP 93/58
[2020-09-02] MEDS: PROMETHAZINE W/CODEINE 5 ML ORAL SYRUP PO PRN ×2 (16:07→22:08)
[2020-09-02] MEDS ORDERED: THROAT LOZENGES(CEPASTAT) MT PRN (16:45)
[2020-09-03] VITALS: BP 97/54
[2020-09-03 08:00] VITALS: BP 95/59
[2020-09-03] MEDS: DexAMETHasone SOD PHOS 10MG/1ML VIAL INJ IV SCH ×2 (08:48→22:09)
[2020-09-03] MEDS: levoFLOXacin 500MG 100 ML IV SCH (08:48)
[2020-09-03] MEDS: ENSURE CLEAR Mixed Berry 8oz Carton PO SCH ×2 (08:48→12:28)
[2020-09-03] MEDS: ENOXAPARIN SOD 80 MG/0.8ML SYRINGE SC SCH ×2 (08:49→22:09)
[2020-09-03] MEDS: FAMOTIDINE (10MG/ML) 2ML VL IV SCH (08:49)
[2020-09-03] MEDS: ZINC SULFATE 220mg CAP or TAB PO SCH (08:49)
[2020-09-03] MEDS: CHOLECALCIFEROL (VITD3) 2,000 UNIT CAP PO SCH (08:49)
[2020-09-03] MEDS: ASCORBIC ACID 1,000 MG TAB PO SCH (08:49)
[2020-09-03] MEDS: BUDESONIDE (INHALATION) 180 MCG IH IN SCH ×2 (12:28→20:38)
[2020-09-03] MEDS: PROMETHAZINE W/CODEINE 5 ML ORAL SYRUP PO PRN ×2 (12:29→22:15)
[2020-09-03 16:00] VITALS: BP 104/53
[2020-09-03] MEDS: ALBUTEROL SULF HFA 90MCG INH 200DOSE IN PRN (20:38)
[2020-09-03] MEDS: FAMOTIDINE 20 MG TAB PO SCH (22:09)
[2020-09-04] VITALS: BP 88/58
[2020-09-04] MEDS: ALBUTEROL SULF HFA 90MCG INH 200DOSE IN PRN (06:48)
[2020-09-04 08:00] VITALS: BP 96/55
[2020-09-04] MEDS: ENSURE CLEAR Mixed Berry 8oz Carton PO SCH ×4 (09:19→18:40)
[2020-09-04] MEDS: levoFLOXacin 500MG 100 ML IV SCH (09:20)
[2020-09-04] MEDS: DexAMETHasone SOD PHOS 10MG/1ML VIAL INJ IV SCH ×2 (09:20→21:55)
[2020-09-04] MEDS: ZINC SULFATE 220mg CAP or TAB PO SCH (09:20)
[2020-09-04] MEDS: FAMOTIDINE 20 MG TAB PO SCH ×2 (09:20→21:55)
[2020-09-04] MEDS: BUDESONIDE (INHALATION) 180 MCG IH IN SCH ×2 (09:20→22:00)
[2020-09-04] MEDS: ASCORBIC ACID 1,000 MG TAB PO SCH (09:21)
[2020-09-04] MEDS: CHOLECALCIFEROL (VITD3) 2,000 UNIT CAP PO SCH (09:21)
[2020-09-04] MEDS: ENOXAPARIN SOD 80 MG/0.8ML SYRINGE SC SCH ×2 (09:22→21:55)
[2020-09-04 16:00] VITALS: BP 89/49
[2020-09-04] MEDS: PROMETHAZINE W/CODEINE 5 ML ORAL SYRUP PO PRN (21:55)
[2020-09-05] VITALS: BP 95/48
[2020-09-05 07:05] LABS: Basophils # (auto) 0 10 ^3/uL (0-0.2); Basophils % (auto) 0.1 % (0.0-2.0); Eosinophils # (auto) 0 10 ^3/uL (0-0.8); Eosinophils % (auto) 0.1 % (0.0-7.0); Hematocrit 39.2 % (41.0-53.0); Hemoglobin 13.4 g/dL (13.5-17.5); Lymphocytes # (auto) 1.2 10 ^3/uL (0.4-5.4); Lymphocytes % (auto) 9.9 % (10.0-50.0); Mean Corpuscular Hemoglobin 30.4 pg (28.0-32.0); Mean Corpuscular Hgb Conc. 34.1 g/dL (32.0-36.0); Mean Corpuscular Volume 89.1 fL (80.0-100.0); Monocytes # (auto) 0.6 10 ^3/uL (0-1.3); Monocytes % (auto) 4.7 % (0.0-12.0); Neutrophils # (auto) 10.1 10 ^3/uL (1.6-8.6); Neutrophils % (auto) 85.2 % (37.0-80.0); Nucleated Red Blood Cells % 0.1 %; Platelet Count (auto) 271 10^3/uL (140-450); White Blood Cell 11.9 10^3/uL (4.4-10.8)
[2020-09-05 07:25] LABS: BUN/Creatinine Ratio 26.8; Calcium 8.3 mg/dL (8.5-10.1)
[2020-09-05] MEDS: ALBUTEROL SULF HFA 90MCG INH 200DOSE IN PRN ×2 (07:51→22:30)
[2020-09-05] MEDS: BUDESONIDE (INHALATION) 180 MCG IH IN SCH ×2 (07:51→22:30)
[2020-09-05 08:00] VITALS: BP 88/62
[2020-09-05] MEDS: ENSURE CLEAR Mixed Berry 8oz Carton PO SCH ×3 (08:47→18:10)
[2020-09-05] MEDS: DexAMETHasone SOD PHOS 10MG/1ML VIAL INJ IV SCH (08:50)
[2020-09-05] MEDS: ZINC SULFATE 220mg CAP or TAB PO SCH (08:51)
[2020-09-05] MEDS: ASCORBIC ACID 1,000 MG TAB PO SCH (08:51)
[2020-09-05] MEDS: FAMOTIDINE 20 MG TAB PO SCH ×2 (08:51→21:47)
[2020-09-05] MEDS: levoFLOXacin 500MG 100 ML IV SCH (08:51)
[2020-09-05] MEDS: ENOXAPARIN SOD 80 MG/0.8ML SYRINGE SC SCH (08:52)
[2020-09-05] MEDS: CHOLECALCIFEROL (VITD3) 2,000 UNIT CAP PO SCH (08:52)
[2020-09-05 16:00] VITALS: BP 91/67
[2020-09-05] MEDS: ENOXAPARIN SOD 40 MG/0.4 ML SYRINGE SC SCH (21:47)
[2020-09-05 23:09] VITALS: BP 92/48
[2020-09-06 05:25] VITALS: BP 98/61
[2020-09-06 08:00] VITALS: BP 89/51
[2020-09-06] MEDS: ENSURE CLEAR Mixed Berry 8oz Carton PO SCH ×3 (08:59→17:46)
[2020-09-06] MEDS: ZINC SULFATE 220mg CAP or TAB PO SCH (08:59)
[2020-09-06] MEDS: CHOLECALCIFEROL (VITD3) 2,000 UNIT CAP PO SCH (09:00)
[2020-09-06] MEDS: DexAMETHasone 4 MG TAB PO SCH (09:00)
[2020-09-06] MEDS: FAMOTIDINE 20 MG TAB PO SCH ×2 (09:00→22:04)
[2020-09-06] MEDS: levoFLOXacin 500 MG TAB PO SCH (09:00)
[2020-09-06] MEDS: ASCORBIC ACID 1,000 MG TAB PO SCH (09:01)
[2020-09-06] MEDS: ENOXAPARIN SOD 40 MG/0.4 ML SYRINGE SC SCH ×2 (09:01→22:04)
[2020-09-06] MEDS: BUDESONIDE (INHALATION) 180 MCG IH IN SCH ×2 (10:00→19:17)
[2020-09-06] MEDS: ALBUTEROL SULF HFA 90MCG INH 200DOSE IN PRN ×2 (14:56→19:17)
[2020-09-06 15:33] VITALS: BP 95/58
[2020-09-06 22:29] VITALS: BP 110/72
[2020-09-07 05:22] VITALS: BP 83/49
[2020-09-07] MEDS: BUDESONIDE (INHALATION) 180 MCG IH IN SCH ×2 (06:08→18:26)
[2020-09-07] MEDS: ALBUTEROL SULF HFA 90MCG INH 200DOSE IN PRN ×2 (06:08→20:05)
[2020-09-07 08:00] VITALS: BP 91/62
[2020-09-07] MEDS: ENSURE CLEAR Mixed Berry 8oz Carton PO SCH ×3 (08:27→18:25)
[2020-09-07] MEDS: ASCORBIC ACID 1,000 MG TAB PO SCH (09:42)
[2020-09-07] MEDS: ZINC SULFATE 220mg CAP or TAB PO SCH (09:42)
[2020-09-07] MEDS: DexAMETHasone 4 MG TAB PO SCH (09:42)
[2020-09-07] MEDS: FAMOTIDINE 20 MG TAB PO SCH ×2 (09:43→21:35)
[2020-09-07] MEDS: levoFLOXacin 500 MG TAB PO SCH (09:43)
[2020-09-07] MEDS: ENOXAPARIN SOD 40 MG/0.4 ML SYRINGE SC SCH ×2 (11:46→21:36)
[2020-09-07] MEDS: CHOLECALCIFEROL (VITD3) 2,000 UNIT CAP PO SCH (11:46)
[2020-09-07 16:00] VITALS: BP 95/53
[2020-09-08] VITALS: BP 101/60
[2020-09-08] MEDS: BUDESONIDE (INHALATION) 180 MCG IH IN SCH (06:07)
[2020-09-08] MEDS: ALBUTEROL SULF HFA 90MCG INH 200DOSE IN PRN (06:07)
[2020-09-08 08:00] VITALS: BP 93/56
[2020-09-08] MEDS: ENSURE CLEAR Mixed Berry 8oz Carton PO SCH (08:59)
[2020-09-08] MEDS: levoFLOXacin 500 MG TAB PO SCH (10:45)
[2020-09-08] MEDS: ZINC SULFATE 220mg CAP or TAB PO SCH (10:45)
[2020-09-08] MEDS: FAMOTIDINE 20 MG TAB PO SCH (10:45)
[2020-09-08] MEDS: ASCORBIC ACID 1,000 MG TAB PO SCH (10:46)
[2020-09-08] MEDS: CHOLECALCIFEROL (VITD3) 2,000 UNIT CAP PO SCH (10:46)
[2020-09-08] MEDS: DexAMETHasone 4 MG TAB PO SCH (10:46)
[2020-09-08] MEDS: ENOXAPARIN SOD 40 MG/0.4 ML SYRINGE SC SCH (10:46)
[2020-09-08 16:00] VITALS: BP 98/63
[2020-09-08 16:29] VITALS: BP 98/63
== END 2020-09-08 17:45 | disposition home or self-care (01) | DRG 177 ==
LOC: ER 09:28 → TELE 09:29 → TELE-EAST 08-21 04:55
PROVIDERS: ADMIT Internal Medicine; ATTEND Internal Medicine
PROC: XW033E5 Introduction of Remdesivir Anti-infective into Peripheral Vein, Percutaneous Approach, New Technology Group 5 (ICD-10-PCS; principal; 2020-08-22)
PROC: XW13325 Transfusion of Convalescent Plasma (Nonautologous) into Peripheral Vein, Percutaneous Approach, New Technology Group 5 (ICD-10-PCS; 2020-08-25)
DX: U07.1 COVID-19 (principal); J96.01 Acute respiratory failure with hypoxia; N17.0 Acute kidney failure with tubular necrosis; J12.82 Pneumonia due to coronavirus disease 2019; R65.10 Systemic inflammatory response syndrome (SIRS) of non-infectious origin without acute organ dysfunction; E44.0 Moderate protein-calorie malnutrition; R73.9 Hyperglycemia, unspecified; D89.839 Cytokine release syndrome, grade unspecified; R74.01 Elevation of levels of liver transaminase levels; Z79.82 Long term (current) use of aspirin; Z68.26 Body mass index [BMI] 26.0-26.9, adult
CPT/HCPCS: 36415; 36600; 71045; 80048; 80053; 81001; 82306; 82728; 82805; 82962; 83036; 83615; 84484; 85007; 85025; 85027; 85379; 85610; 85730; 86141; 86703; 86850; 86900; 86901; 87426; 93005; 94640; G0378; J1100; J1956; J3490

== ENCOUNTER 2020-09-30 09:11 | Inpatient (IN) | payer MEDICAID, SELFPAY ==
[~2020-09-30] VITALS: Ht 172.7 cm; Wt 78.0 kg
[2020-09-30 09:50] LABS: Basophils # (auto) 0 10 ^3/uL (0-0.2); Basophils % (auto) 0.4 % (0.0-2.0); Eosinophils # (auto) 0.1 10 ^3/uL (0-0.8); Eosinophils % (auto) 1.4 % (0.0-7.0); Hematocrit 44.8 % (41.0-53.0); Hemoglobin 15.2 g/dL (13.5-17.5); Lymphocytes # (auto) 2.6 10 ^3/uL (0.4-5.4); Lymphocytes % (auto) 41.2 % (10.0-50.0); Mean Corpuscular Hemoglobin 30.3 pg (28.0-32.0); Mean Corpuscular Hgb Conc. 33.8 g/dL (32.0-36.0); Mean Corpuscular Volume 89.6 fL (80.0-100.0); Monocytes # (auto) 0.5 10 ^3/uL (0-1.3); Monocytes % (auto) 7.4 % (0.0-12.0); Neutrophils # (auto) 3.2 10 ^3/uL (1.6-8.6); Neutrophils % (auto) 49.6 % (37.0-80.0); Nucleated Red Blood Cells % 0.1 %; Platelet Count (auto) 254 10^3/uL (140-450); Red Cell Distribution Width 14.9 % (11.8-14.3); White Blood Cell 6.4 10^3/uL (4.4-10.8)
[2020-09-30 09:55] LABS: INR 1.09 (0.9-1.15); Partial Thromboplastin Time 27.6 sec (23.0-31.2)
[2020-09-30 10:02] LABS: Carbon Dioxide 28 mmol/L (21-32); Chloride 106 mmol/L (98-107); Sodium 140 mmol/L (136-145)
[2020-09-30 10:03] LABS: Albumin 3.8 g/dL (3.4-5.0); Anion Gap 6 (5-15); Blood Urea Nitrogen 12 mg/dL (7-18); Calcium 9.3 mg/dL (8.5-10.1); Glucose 151 mg/dL (74-106); Magnesium 2.3 mg/dL (1.6-2.6)
[2020-09-30 10:09] LABS: Alanine Aminotransferase 134 U/L (16-61); Alkaline Phosphatase 75 U/L (45-117); Aspartate Aminotransferase 48 U/L (15-37); BUN/Creatinine Ratio 14.6; Bilirubin, Total 0.4 mg/dL (0.2-1.0); GFR African American 133 mL/min; GFR Non-African American 110 mL/min
[2020-09-30] MEDS ORDERED: AZITHROMYCIN 500MG/ 250ML 250 ML IV ONE (14:30)
[2020-09-30] MEDS ORDERED: ASPirin-EC 81 mg tab PO ONE (14:30)
[2020-09-30] MEDS ORDERED: IOHEXOL 350 MG/ML 100ML IJ ONE (17:45)
[2020-09-30] MEDS ORDERED: ACETAMINOPHEN 500 MG TAB PO PRN (19:15)
[2020-09-30] MEDS ORDERED: ONDANSETRON HCL 4 MG/2 ML VIAL IV PRN (19:15)
[2020-09-30] MEDS ORDERED: NITROGLYCERIN 0.4 MG SL TAB SL PRN (19:15)
[2020-09-30] MEDS ORDERED: MORPHINE SULF INJ 2 MG/ML SYRINGE 1ML IV PRN ×2 (19:15)
[2020-09-30] MEDS ORDERED: HYDROcodone-ACET 5/325MG TAB PO PRN (19:15)
[2020-09-30 21:24] LABS: Lactic Acid w/Reflex 2.5 mmol/L (0.4-2.0)
[2020-09-30 21:26] LABS: INR 1.1 (0.9-1.15); Partial Thromboplastin Time 27.7 sec (23.0-31.2)
[2020-10-01 01:42] LABS: CRP High Sensitivity 0.93 mg/dL (< 0.3)
[2020-10-01 04:33] VITALS: BP 115/77
[2020-10-01] MEDS ORDERED: DEXA0.5T15 PO (05:24)
[2020-10-01] MEDS ORDERED: ASCO500T11 PO (05:24)
[2020-10-01] MEDS ORDERED: CHOL20007 PO (05:24)
[2020-10-01] MEDS ORDERED: ZINC220T6 PO (05:24)
[2020-10-01 08:00] VITALS: BP 119/72
[2020-10-01] MEDS ORDERED: ENOXAPARIN SOD 30 MG/0.3 ML SYRINGE SC SCH (10:00)
[2020-10-01] MEDS ORDERED: FAMOTIDINE 20 MG TAB PO SCH (10:00)
[2020-10-01 13:29] VITALS: BP 119/72
[2020-10-02] MEDS ORDERED: ENOXAPARIN SOD 40 MG/0.4 ML SYRINGE SC SCH (10:00)
== END 2020-10-01 15:10 | disposition home or self-care (01) | DRG 137 ==
LOC: ER 09:11 → TELE 09:12 → TELE-EAST 10-01 02:25
PROVIDERS: ADMIT Nurse Practitioner Acute Care; ATTEND Internal Medicine
DX: U07.1 COVID-19 (principal); J12.82 Pneumonia due to coronavirus disease 2019; D68.59 Other primary thrombophilia; K76.0 Fatty (change of) liver, not elsewhere classified; Z79.899 Other long term (current) drug therapy; Z82.49 Family history of ischemic heart disease and other diseases of the circulatory system
CPT/HCPCS: 36415; 71045; 71275; 80053; 82728; 83605; 83615; 83735; 84484; 85025; 85379; 85610; 85730; 86141; 87040; 87081; 87426; 93005; 96365; G0378

== ENCOUNTER 2021-06-14 13:41 | Inpatient (IN) | payer MEDICAID ==
[~2021-06-14] VITALS: Ht 175.3 cm; Wt 87.0 kg
[~2021-06-14 13:41] MED LIST: ASCO500T11 PO; CHOL20007 PO; DEXA0.5T15 PO; ZINC220T6 PO
[2021-06-14] MEDS ORDERED: FAMOTIDINE 20 MG TAB PO ONE (14:00)
[2021-06-14] MEDS ORDERED: LIDOCAINE VISCOUS 2% 15ML UD PO ONE (14:00)
[2021-06-14 15:10] LABS: Basophils # (auto) 0 10 ^3/uL (0-0.2); Eosinophils # (auto) 0.1 10 ^3/uL (0-0.8); Nucleated Red Blood Cells % 0.1 %
[2021-06-14 15:11] LABS: Basophils % (auto) 0.1 % (0.0-2.0); Eosinophils % (auto) 0.5 % (0.0-7.0); Hematocrit 55.7 % (41.0-53.0); Hemoglobin 18.2 g/dL (13.5-17.5); Lymphocytes # (auto) 6.7 10 ^3/uL (0.4-5.4); Lymphocytes % (auto) 32.4 % (10.0-50.0); Mean Corpuscular Hemoglobin 28.9 pg (28.0-32.0); Mean Corpuscular Hgb Conc. 32.7 g/dL (32.0-36.0); Mean Corpuscular Volume 88.4 fL (80.0-100.0); Monocytes # (auto) 1.3 10 ^3/uL (0-1.3); Monocytes % (auto) 6.2 % (0.0-12.0); Neutrophils # (auto) 12.5 10 ^3/uL (1.6-8.6); Neutrophils % (auto) 60.8 % (37.0-80.0); Red Blood Cells 6.31 10^6/uL (4.5-5.90); White Blood Cell 20.6 10^3/uL (4.4-10.8)
[2021-06-14 15:12] LABS: Albumin 4.4 g/dL (3.4-5.0); Calcium 9.4 mg/dL (8.5-10.1); Chloride 105 mmol/L (98-107); Potassium 3.2 mmol/L (3.5-5.1); Sodium 140 mmol/L (136-145)
[2021-06-14 15:34] LABS: Alanine Aminotransferase 364 U/L (16-61); Alkaline Phosphatase 85 U/L (45-117); Anion Gap 10 (5-15); Aspartate Aminotransferase 356 U/L (15-37); BUN/Creatinine Ratio 11.5; Bilirubin, Total 1.6 mg/dL (0.2-1.0); Blood Urea Nitrogen 14 mg/dL (7-18); Carbon Dioxide 25 mmol/L (21-32); GFR African American 83 mL/min; GFR Non-African American 69 mL/min; Glucose 172 mg/dL (74-106); Total Protein 8.3 g/dL (6.4-8.2)
[2021-06-14] MEDS ORDERED: SODIUM CHLORIDE 0.9% 1,000 ML IVB ONE (16:00)
[2021-06-14] MEDS ORDERED: PANTOPRAZOLE 40 MG/10 ML VIAL INJ IV ONE (16:00)
[2021-06-14] MEDS ORDERED: MORPHINE SULFATE 4 MG/ML SYR/VIAL IV ONE (16:00)
[2021-06-14] MEDS ORDERED: PROCHLORPERAZINE EDISYLATE 5 MG/ML 2ML VIAL IV ONE (16:00)
[2021-06-14 17:32] LABS: Amylase 4820 U/L (25-115)
[2021-06-14 17:33] LABS: Lipase 44780 U/L (73-393)
[2021-06-14] MEDS ORDERED: POTASSIUM CHL 20MEQ/100ML 100 ML IV ONE (18:30)
[2021-06-14] MEDS ORDERED: NITROGLYCERIN 0.4 MG SL TAB SL PRN (19:00)
[2021-06-14] MEDS ORDERED: LACTATED RINGER'S 2,000 ML IV ONE (19:00)
[2021-06-14] MEDS ORDERED: LACTATED RINGER'S 1,000 ML IV ONE (19:00)
[2021-06-15] MEDS: HYDROmorphone HCL 2 MG/ML VL IV PRN ×6 (01:13→21:00)
[2021-06-15] MEDS: ONDANSETRON HCL 4 MG/2 ML VIAL IV PRN (01:14)
[2021-06-15] MEDS: MEROPENEM 1GM IVPB 100 ML IV SCH ×4 (02:32→21:41)
[2021-06-15 03:00] VITALS: BP 161/89
[2021-06-15] MEDS: MORPHINE SULFATE INJECTION 2 MG/ML SYRG IV PRN ×2 (04:11→04:14)
[2021-06-15 05:00] VITALS: BP 128/90
[2021-06-15 08:35] LABS: Basophils # (auto) 0 10 ^3/uL (0-0.2); Basophils % (auto) 0.2 % (0.0-2.0); Eosinophils # (auto) 0 10 ^3/uL (0-0.8); Monocytes # (auto) 1.2 10 ^3/uL (0-1.3); White Blood Cell 14.6 10^3/uL (4.4-10.8)
[2021-06-15 08:37] LABS: Hemoglobin 18.8 g/dL (13.5-17.5); Lymphocytes % (auto) 13.6 % (10.0-50.0); Mean Corpuscular Hemoglobin 29.3 pg (28.0-32.0); Mean Corpuscular Volume 88.6 fL (80.0-100.0); Monocytes % (auto) 8.3 % (0.0-12.0); Neutrophils # (auto) 11.4 10 ^3/uL (1.6-8.6); Neutrophils % (auto) 77.9 % (37.0-80.0); Nucleated Red Blood Cells % 0.1 %; Red Blood Cells 6.44 10^6/uL (4.5-5.90); Red Cell Distribution Width 14.1 % (11.8-14.3)
[2021-06-15 08:58] LABS: Albumin 3.6 g/dL (3.4-5.0); Calcium 8.6 mg/dL (8.5-10.1)
[2021-06-15 09:00] VITALS: BP 128/101
[2021-06-15 09:01] LABS: BUN/Creatinine Ratio 17.9; Bilirubin, Total 1.9 mg/dL (0.2-1.0)
[2021-06-15] MEDS: PANTOPRAZOLE 40 MG/10 ML VIAL INJ IV SCH (09:01)
[2021-06-15] MEDS: ENOXAPARIN SOD 40 MG/0.4 ML SYRINGE SC SCH (09:02)
[2021-06-15 13:00] VITALS: BP 132/83
[2021-06-15] MEDS ORDERED: hydrALAZINE HCL 20 MG/ML VL IV PRN (15:00)
[2021-06-15 17:00] VITALS: BP 136/102
[2021-06-15] MEDS: LACTATED RINGER'S 1,000 ML IV SCH (17:28)
[2021-06-15] MEDS ORDERED: CLINIMIX PER PHARMACY 0 ML IV SCH (21:45)
[2021-06-15 22:12] VITALS: BP 118/100
[2021-06-15] MEDS ORDERED: AMINO ACID INFUSION IN D10W 1,000 ML IV NR (22:30)
[2021-06-16] MEDS ORDERED: DEXTROSE (50%) 50ML SYRG IV SCH
[2021-06-16 00:05] VITALS: BP 148/94
[2021-06-16] MEDS: LACTATED RINGER'S 1,000 ML IV SCH ×3 (00:29→21:21)
[2021-06-16] MEDS: InsuLIN REG 1unit/0.01ml Soln (100units/ml) SC SCH ×4 (00:54→18:10)
[2021-06-16] MEDS: ACCU-CHEK COMFORT CURVE STRIP VI SCH ×4 (00:55→18:10)
[2021-06-16] MEDS ORDERED: dilTIAZem 25 MG/5 ML VIAL IV ONE (01:00)
[2021-06-16] MEDS: HYDROmorphone HCL 2 MG/ML VL IV PRN ×5 (03:44→21:25)
[2021-06-16] MEDS: MEROPENEM 1GM IVPB 100 ML IV SCH ×3 (05:11→21:26)
[2021-06-16 05:30] VITALS: BP 125/91
[2021-06-16] MEDS ORDERED: LABETALOL HCL 5 MG/ML 4ML SYRINGE IV ONE (05:30)
[2021-06-16 06:45] LABS: Chloride 115 mmol/L (98-107); Potassium 5.1 mmol/L (3.5-5.1); Sodium 140 mmol/L (136-145)
[2021-06-16 06:59] LABS: Alanine Aminotransferase 197 U/L (16-61); Albumin 3.1 g/dL (3.4-5.0); Alkaline Phosphatase 46 U/L (45-117); Aspartate Aminotransferase 167 U/L (15-37); BUN/Creatinine Ratio 22.8; Bilirubin, Total 2.2 mg/dL (0.2-1.0); Blood Urea Nitrogen 31 mg/dL (7-18); Carbon Dioxide 22 mmol/L (21-32); Cholesterol 124 mg/dL (< 200); GFR African American 74 mL/min; GFR Non-African American 61 mL/min; Glucose 151 mg/dL (74-106); HDL Cholesterol 17 mg/dL (40-59); LDL Cholesterol 78 mg/dL (< 100); Phosphorus 1.6 mg/dL (2.5-4.90); Pre Albumin 13.3 mg/dL (20.0-40.0); Total Protein 6.6 g/dL (6.4-8.2); Triglycerides 215 mg/dL (< 150)
[2021-06-16 07:12] LABS: Lipase 9010 U/L (73-393)
[2021-06-16 07:18] LABS: Anion Gap 3 (5-15)
[2021-06-16 07:39] LABS: Amylase > 1302 U/L (25-115)
[2021-06-16 07:58] LABS: Basophils # (auto) 0 10 ^3/uL (0-0.2); Basophils % (auto) 0.3 % (0.0-2.0); Eosinophils # (auto) 0 10 ^3/uL (0-0.8); Hematocrit 43.4 % (41.0-53.0); Hemoglobin 14.6 g/dL (13.5-17.5); Lymphocytes # (auto) 1.5 10 ^3/uL (0.4-5.4); Lymphocytes % (auto) 13.5 % (10.0-50.0); Mean Corpuscular Hgb Conc. 33.6 g/dL (32.0-36.0); Mean Corpuscular Volume 89.1 fL (80.0-100.0); Monocytes # (auto) 1.1 10 ^3/uL (0-1.3); Monocytes % (auto) 9.9 % (0.0-12.0); Neutrophils # (auto) 8.7 10 ^3/uL (1.6-8.6); Neutrophils % (auto) 76.3 % (37.0-80.0); Nucleated Red Blood Cells % 0.1 %; Red Blood Cells 4.87 10^6/uL (4.5-5.90); Red Cell Distribution Width 14.4 % (11.8-14.3); White Blood Cell 11.4 10^3/uL (4.4-10.8)
[2021-06-16 09:00] VITALS: BP 133/90
[2021-06-16] MEDS: PANTOPRAZOLE 40 MG/10 ML VIAL INJ IV SCH (09:05)
[2021-06-16] MEDS: ENOXAPARIN SOD 40 MG/0.4 ML SYRINGE SC SCH (09:05)
[2021-06-16] MEDS ORDERED: SODIUM PHOSP 40 MEQ in D5W 5% 250 ML IV ONE (10:00)
[2021-06-16] MEDS ORDERED: SODIUM PHOSP 20MEQ(15MMOL) IN NS 100 ML IV ONE (10:00)
[2021-06-16] MEDS ORDERED: SODIUM PHOSPH 24MEQ(18MMOL) IN NS 100 ML IV ONE (10:00)
[2021-06-16 13:00] VITALS: BP 134/90
[2021-06-16] MEDS: KETOROLAC TROMETH 30 MG/ML 1ML VIAL IV PRN (16:32)
[2021-06-16] MEDS ORDERED: AMINO ACID INFUSION IN D10W 1,000 ML IV NR (20:00)
[2021-06-16 22:00] VITALS: BP 121/83
[2021-06-17] MEDS: InsuLIN REG 1unit/0.01ml Soln (100units/ml) SC SCH ×5 (00:24→23:43)
[2021-06-17] MEDS: ACCU-CHEK COMFORT CURVE STRIP VI SCH ×5 (00:25→23:33)
[2021-06-17] MEDS: KETOROLAC TROMETH 30 MG/ML 1ML VIAL IV PRN ×4 (02:37→23:33)
[2021-06-17] MEDS: LACTATED RINGER'S 1,000 ML IV SCH ×3 (02:38→18:05)
[2021-06-17] MEDS: HYDROmorphone HCL 2 MG/ML VL IV PRN ×5 (04:32→21:38)
[2021-06-17 05:00] VITALS: BP 147/64
[2021-06-17] MEDS: MEROPENEM 1GM IVPB 100 ML IV SCH ×2 (05:03→23:22)
[2021-06-17 07:08] LABS: Basophils # (auto) 0 10 ^3/uL (0-0.2); Basophils % (auto) 0.3 % (0.0-2.0); Eosinophils # (auto) 0 10 ^3/uL (0-0.8); Eosinophils % (auto) 0.2 % (0.0-7.0); Hematocrit 39.1 % (41.0-53.0); Hemoglobin 12.8 g/dL (13.5-17.5); Lymphocytes # (auto) 1.2 10 ^3/uL (0.4-5.4); Lymphocytes % (auto) 13.5 % (10.0-50.0); Mean Corpuscular Hemoglobin 29.5 pg (28.0-32.0); Mean Corpuscular Hgb Conc. 32.6 g/dL (32.0-36.0); Mean Corpuscular Volume 90.2 fL (80.0-100.0); Monocytes # (auto) 0.9 10 ^3/uL (0-1.3); Monocytes % (auto) 10.4 % (0.0-12.0); Neutrophils # (auto) 6.5 10 ^3/uL (1.6-8.6); Neutrophils % (auto) 75.6 % (37.0-80.0); Nucleated Red Blood Cells % 0.3 %; Red Blood Cells 4.33 10^6/uL (4.5-5.90); Red Cell Distribution Width 14.4 % (11.8-14.3); White Blood Cell 8.7 10^3/uL (4.4-10.8)
[2021-06-17 07:15] LABS: Albumin 2.7 g/dL (3.4-5.0); BUN/Creatinine Ratio 26.4; Bilirubin, Total 1.2 mg/dL (0.2-1.0); Calcium 7.9 mg/dL (8.5-10.1); Magnesium 2.2 mg/dL (1.6-2.6); Phosphorus 1.2 mg/dL (2.5-4.90); Total Protein 6.2 g/dL (6.4-8.2)
[2021-06-17 09:00] VITALS: BP 131/77
[2021-06-17] MEDS ORDERED: POTASSIUM PHOSPHATE 26.4 MEQ in SODIUM CHL 0.9% 100 ML IV ONE (09:15)
[2021-06-17] MEDS: ENOXAPARIN SOD 40 MG/0.4 ML SYRINGE SC SCH (09:43)
[2021-06-17] MEDS: PANTOPRAZOLE 40 MG/10 ML VIAL INJ IV SCH (09:43)
[2021-06-17] MEDS ORDERED: IOHEXOL 300 MG/ML 100ML BOTTLE IJ ONE ×2 (10:53→17:20)
[2021-06-17 12:23] LABS: INR 1.18 (0.9-1.15); Partial Thromboplastin Time 37.3 sec (23.6-33.0)
[2021-06-17 13:00] VITALS: BP 125/74
[2021-06-17 17:00] VITALS: BP 140/93
[2021-06-17] MEDS ORDERED: AMINO ACID INFUSION IN D10W 1,000 ML IV NR (20:00)
[2021-06-17 22:00] VITALS: BP 135/81
[2021-06-18] MEDS: HYDROmorphone HCL 2 MG/ML VL IV PRN ×7 (01:41→22:11)
[2021-06-18 05:12] VITALS: BP 140/86
[2021-06-18] MEDS ORDERED: ACETAMINOPHEN 650 MG RECT SUPP PR PRN ×2 (05:45→11:00)
[2021-06-18 06:07] LABS: INR 1.14 (0.9-1.15)
[2021-06-18] MEDS: ACCU-CHEK COMFORT CURVE STRIP VI SCH ×3 (06:12→18:04)
[2021-06-18] MEDS: InsuLIN REG 1unit/0.01ml Soln (100units/ml) SC SCH ×3 (06:15→18:04)
[2021-06-18 06:16] LABS: Hematocrit 36.7 % (41.0-53.0); Hemoglobin 12.4 g/dL (13.5-17.5); Mean Corpuscular Hgb Conc. 33.7 g/dL (32.0-36.0); Mean Corpuscular Volume 89.1 fL (80.0-100.0); Red Blood Cells 4.12 10^6/uL (4.5-5.90); Red Cell Distribution Width 14.1 % (11.8-14.3); White Blood Cell 10.1 10^3/uL (4.4-10.8)
[2021-06-18 06:17] LABS: Potassium 3.9 mmol/L (3.5-5.1)
[2021-06-18] MEDS: MEROPENEM 1GM IVPB 100 ML IV SCH ×3 (06:18→21:23)
[2021-06-18 06:22] LABS: Basophils % (manual) 0 (0.0-2.0); Blast Cells 0; Metamyelocytes % 0; Myelocytes % 0; Promyelocytes % 0; Reactive Lymphocytes 0
[2021-06-18 06:31] LABS: Albumin 2.7 g/dL (3.4-5.0); BUN/Creatinine Ratio 30.9; Bilirubin, Total 1.3 mg/dL (0.2-1.0); Calcium 8.1 mg/dL (8.5-10.1); Magnesium 2.4 mg/dL (1.6-2.6); Total Protein 6.2 g/dL (6.4-8.2)
[2021-06-18 06:33] LABS: Phosphorus 0.8 mg/dL (2.5-4.90)
[2021-06-18] MEDS: LACTATED RINGER'S 1,000 ML IV SCH ×2 (06:43→20:25)
[2021-06-18] MEDS ORDERED: POTASSIUM PHOSPHATE 17.6 MEQ in SODIUM CHL 0.9% 100 ML IV ONE (07:00)
[2021-06-18 07:24] LABS: Band Neutrophils % (manual) 17; Eosinophils % (manual) 1 (0-7); Lymphocytes % (manual) 12 (10.0-50.0); Monocytes % (manual) 12 (0-12)
[2021-06-18] MEDS: KETOROLAC TROMETH 30 MG/ML 1ML VIAL IV PRN (07:49)
[2021-06-18 09:00] VITALS: BP 138/88
[2021-06-18] MEDS: ENOXAPARIN SOD 40 MG/0.4 ML SYRINGE SC SCH (09:21)
[2021-06-18] MEDS: PANTOPRAZOLE 40 MG/10 ML VIAL INJ IV SCH (09:21)
[2021-06-18] MEDS ORDERED: LIDOCAINE 1% (LOCAL ANESTH.) PF 5ml SDV ID ONE (12:00)
[2021-06-18 13:00] VITALS: BP 139/85
[2021-06-18] MEDS ORDERED: POTASSIUM PHOSPHATE 22 MEQ in SODIUM CHL 0.9% 100 ML IV ONE (13:00)
[2021-06-18] MEDS ORDERED: TPN PER PHARMACY 0 ML IV SCH (13:15)
[2021-06-18] MEDS: MORPHINE SULFATE INJECTION 2 MG/ML SYRG IV PRN ×2 (14:12→20:09)
[2021-06-18 16:50] VITALS: BP 136/94
[2021-06-18] MEDS ORDERED: METOPROLOL TARTRATE 1MG/1ML-5ML VIAL IV PRN (18:45)
[2021-06-18] MEDS ORDERED: AMINO ACID INFUSION IN D10W 1,000 ML IV NR (20:00)
[2021-06-18] MEDS: SODIUM CHLOR 0.9% PF (SALINE LOCK) 10ML VIAL/SYR IV SCH (21:53)
[2021-06-18 22:00] VITALS: BP_SYST 150; BP_SYST 152; BP_DIAS 89; BP_DIAS 91
[2021-06-19] MEDS: MORPHINE SULFATE INJECTION 2 MG/ML SYRG IV PRN ×3 (00:43→11:54)
[2021-06-19] MEDS: ACCU-CHEK COMFORT CURVE STRIP VI SCH ×4 (00:44→17:52)
[2021-06-19] MEDS: InsuLIN REG 1unit/0.01ml Soln (100units/ml) SC SCH ×4 (00:52→18:20)
[2021-06-19] MEDS: HYDROmorphone HCL 2 MG/ML VL IV PRN ×4 (02:56→21:09)
[2021-06-19 05:00] VITALS: BP 135/81
[2021-06-19 05:39] LABS: Basophils # (auto) 0 10 ^3/uL (0-0.2); Basophils % (auto) 0.1 % (0.0-2.0); Eosinophils # (auto) 0 10 ^3/uL (0-0.8); Eosinophils % (auto) 0.2 % (0.0-7.0); Hematocrit 34.9 % (41.0-53.0); Hemoglobin 12.1 g/dL (13.5-17.5); Lymphocytes # (auto) 1.4 10 ^3/uL (0.4-5.4); Lymphocytes % (auto) 13.6 % (10.0-50.0); Mean Corpuscular Hemoglobin 30.4 pg (28.0-32.0); Mean Corpuscular Hgb Conc. 34.5 g/dL (32.0-36.0); Mean Corpuscular Volume 87.9 fL (80.0-100.0); Monocytes # (auto) 1.3 10 ^3/uL (0-1.3); Monocytes % (auto) 13.1 % (0.0-12.0); Neutrophils # (auto) 7.5 10 ^3/uL (1.6-8.6); Nucleated Red Blood Cells % 0.1 %; Red Blood Cells 3.97 10^6/uL (4.5-5.90); Red Cell Distribution Width 13.8 % (11.8-14.3); White Blood Cell 10.3 10^3/uL (4.4-10.8)
[2021-06-19] MEDS: MEROPENEM 1GM IVPB 100 ML IV SCH ×3 (05:49→21:41)
[2021-06-19 06:03] LABS: Potassium 3.8 mmol/L (3.5-5.1)
[2021-06-19 06:09] LABS: Albumin 2.5 g/dL (3.4-5.0); BUN/Creatinine Ratio 25.5; Calcium 8.2 mg/dL (8.5-10.1); Magnesium 2.4 mg/dL (1.6-2.6)
[2021-06-19 06:13] LABS: Bilirubin, Total 1.9 mg/dL (0.2-1.0); Phosphorus 1.1 mg/dL (2.5-4.90); Total Protein 6.2 g/dL (6.4-8.2)
[2021-06-19] MEDS: SODIUM CHLOR 0.9% PF (SALINE LOCK) 10ML VIAL/SYR IV SCH ×2 (08:52→21:42)
[2021-06-19] MEDS: ENOXAPARIN SOD 40 MG/0.4 ML SYRINGE SC SCH (08:52)
[2021-06-19] MEDS: PANTOPRAZOLE 40 MG/10 ML VIAL INJ IV SCH (08:52)
[2021-06-19 09:00] VITALS: BP 138/88
[2021-06-19] MEDS: LACTATED RINGER'S 1,000 ML IV SCH (11:41)
[2021-06-19 13:00] VITALS: BP 133/94
[2021-06-19] MEDS: ONDANSETRON HCL 4 MG/2 ML VIAL IV PRN ×2 (13:38→21:20)
[2021-06-19] MEDS ORDERED: POTASSIUM PHOSPHATE 44 MEQ in D5W 5% 250 ML IV ONE (16:00)
[2021-06-19 17:00] VITALS: BP 129/90
[2021-06-19] MEDS ORDERED: AMINO ACID INFUSION IN D10W 1,000 ML IV NR (20:00)
[2021-06-19 22:00] VITALS: BP 136/85
[2021-06-20] MEDS: HYDROmorphone HCL 2 MG/ML VL IV PRN ×5 (00:01→22:09)
[2021-06-20] MEDS: LACTATED RINGER'S 1,000 ML IV SCH ×2 (00:09→13:25)
[2021-06-20] MEDS: InsuLIN REG 1unit/0.01ml Soln (100units/ml) SC SCH ×4 (00:10→17:49)
[2021-06-20] MEDS: ACCU-CHEK COMFORT CURVE STRIP VI SCH ×4 (00:11→17:49)
[2021-06-20] MEDS: ONDANSETRON HCL 4 MG/2 ML VIAL IV PRN ×5 (03:35→22:10)
[2021-06-20 05:00] VITALS: BP 132/82
[2021-06-20] MEDS: MEROPENEM 1GM IVPB 100 ML IV SCH ×3 (06:19→22:43)
[2021-06-20 07:04] LABS: Albumin 2.4 g/dL (3.4-5.0); Calcium 8.1 mg/dL (8.5-10.1); Magnesium 2.3 mg/dL (1.6-2.6); Potassium 3.9 mmol/L (3.5-5.1)
[2021-06-20 07:06] LABS: BUN/Creatinine Ratio 26.3
[2021-06-20 07:09] LABS: Bilirubin, Total 2.1 mg/dL (0.2-1.0); Total Protein 6.4 g/dL (6.4-8.2)
[2021-06-20] MEDS: MORPHINE SULFATE INJECTION 2 MG/ML SYRG IV PRN (08:08)
[2021-06-20] MEDS: PANTOPRAZOLE 40 MG/10 ML VIAL INJ IV SCH (08:08)
[2021-06-20] MEDS: SODIUM CHLOR 0.9% PF (SALINE LOCK) 10ML VIAL/SYR IV SCH ×2 (08:08→22:09)
[2021-06-20] MEDS: ENOXAPARIN SOD 40 MG/0.4 ML SYRINGE SC SCH (08:08)
[2021-06-20 09:00] VITALS: BP 111/78
[2021-06-20] MEDS ORDERED: POTASSIUM PHOSPHATE 22 MEQ in SODIUM CHL 0.9% 100 ML IV ONE (12:15)
[2021-06-20 13:00] VITALS: BP 127/84
[2021-06-20 17:42] VITALS: BP 107/77
[2021-06-20] MEDS ORDERED: TPN PER PHARMACY IV NR ×8 (20:00)
[2021-06-20 21:49] VITALS: BP 118/66
[2021-06-21] MEDS: InsuLIN REG 1unit/0.01ml Soln (100units/ml) SC SCH ×4 (00:04→17:45)
[2021-06-21] MEDS: ACCU-CHEK COMFORT CURVE STRIP VI SCH ×4 (00:04→17:44)
[2021-06-21] MEDS: HYDROmorphone HCL 2 MG/ML VL IV PRN ×4 (02:50→19:58)
[2021-06-21] MEDS: ONDANSETRON HCL 4 MG/2 ML VIAL IV PRN ×4 (02:50→19:58)
[2021-06-21] MEDS: LACTATED RINGER'S 1,000 ML IV SCH ×2 (02:52→17:44)
[2021-06-21 05:30] VITALS: BP 109/63
[2021-06-21] MEDS: MEROPENEM 1GM IVPB 100 ML IV SCH ×3 (06:25→21:37)
[2021-06-21 06:57] LABS: Potassium 3.8 mmol/L (3.5-5.1)
[2021-06-21 07:09] LABS: Albumin 2.3 g/dL (3.4-5.0); BUN/Creatinine Ratio 26.6; Bilirubin, Total 1.6 mg/dL (0.2-1.0); Calcium 8.2 mg/dL (8.5-10.1); Magnesium 2.6 mg/dL (1.6-2.6); Phosphorus 2.8 mg/dL (2.5-4.90); Total Protein 6.2 g/dL (6.4-8.2)
[2021-06-21] MEDS: ENOXAPARIN SOD 40 MG/0.4 ML SYRINGE SC SCH (08:52)
[2021-06-21] MEDS: SODIUM CHLOR 0.9% PF (SALINE LOCK) 10ML VIAL/SYR IV SCH ×2 (08:52→21:38)
[2021-06-21] MEDS: PANTOPRAZOLE 40 MG/10 ML VIAL INJ IV SCH (08:52)
[2021-06-21] MEDS: MORPHINE SULFATE INJECTION 2 MG/ML SYRG IV PRN ×2 (08:53→17:44)
[2021-06-21 09:00] VITALS: BP 111/66
[2021-06-21 13:00] VITALS: BP 104/64
[2021-06-21 17:00] VITALS: BP 110/69
[2021-06-21] MEDS ORDERED: TPN PER PHARMACY IV NR ×9 (20:00)
[2021-06-21 21:51] VITALS: BP 116/67
[2021-06-22] MEDS: ONDANSETRON HCL 4 MG/2 ML VIAL IV PRN (00:22)
[2021-06-22] MEDS: ACCU-CHEK COMFORT CURVE STRIP VI SCH ×4 (00:23→18:28)
[2021-06-22] MEDS: HYDROmorphone HCL 2 MG/ML VL IV PRN ×5 (00:23→20:32)
[2021-06-22] MEDS: InsuLIN REG 1unit/0.01ml Soln (100units/ml) SC SCH ×4 (00:29→18:00)
[2021-06-22] MEDS: MORPHINE SULFATE INJECTION 2 MG/ML SYRG IV PRN (04:25)
[2021-06-22] MEDS: LACTATED RINGER'S 1,000 ML IV SCH ×3 (04:29→20:21)
[2021-06-22 05:25] VITALS: BP 101/61
[2021-06-22] MEDS: MEROPENEM 1GM IVPB 100 ML IV SCH ×3 (05:40→21:51)
[2021-06-22 06:51] LABS: Calcium 7.9 mg/dL (8.5-10.1); Potassium 3.9 mmol/L (3.5-5.1)
[2021-06-22 06:55] LABS: Albumin 2.2 g/dL (3.4-5.0); BUN/Creatinine Ratio 23.6; Bilirubin, Total 1.2 mg/dL (0.2-1.0); Magnesium 2.4 mg/dL (1.6-2.6); Phosphorus 2.5 mg/dL (2.5-4.90); Total Protein 6.1 g/dL (6.4-8.2)
[2021-06-22 06:57] LABS: Basophils # (auto) 0 10 ^3/uL (0-0.2); Basophils % (auto) 0.2 % (0.0-2.0); Eosinophils # (auto) 0.1 10 ^3/uL (0-0.8); Eosinophils % (auto) 0.6 % (0.0-7.0); Hematocrit 35.6 % (41.0-53.0); Hemoglobin 11.9 g/dL (13.5-17.5); Lymphocytes % (auto) 12.8 % (10.0-50.0); Mean Corpuscular Hemoglobin 29.9 pg (28.0-32.0); Mean Corpuscular Hgb Conc. 33.5 g/dL (32.0-36.0); Mean Corpuscular Volume 89.4 fL (80.0-100.0); Monocytes # (auto) 1.2 10 ^3/uL (0-1.3); Monocytes % (auto) 7.7 % (0.0-12.0); Neutrophils % (auto) 78.7 % (37.0-80.0); Nucleated Red Blood Cells % 0.1 %; Red Blood Cells 3.98 10^6/uL (4.5-5.90); Red Cell Distribution Width 14.2 % (11.8-14.3); White Blood Cell 15.2 10^3/uL (4.4-10.8)
[2021-06-22 08:41] VITALS: BP 105/69
[2021-06-22] MEDS ORDERED: IOHEXOL 300 MG/ML 100ML BOTTLE IJ ONE (09:30)
[2021-06-22] MEDS: PANTOPRAZOLE 40 MG/10 ML VIAL INJ IV SCH (10:15)
[2021-06-22] MEDS: SODIUM CHLOR 0.9% PF (SALINE LOCK) 10ML VIAL/SYR IV SCH ×2 (10:16→22:09)
[2021-06-22] MEDS: ENOXAPARIN SOD 40 MG/0.4 ML SYRINGE SC SCH (10:16)
[2021-06-22 13:00] VITALS: BP 93/73
[2021-06-22 17:00] VITALS: BP 105/62
[2021-06-22] MEDS ORDERED: TPN PER PHARMACY IV NR ×8 (20:00)
[2021-06-22] MEDS ORDERED: TPN PER PHARMACY IV ONE ×8 (20:00)
[2021-06-22 22:56] VITALS: BP 114/78
[2021-06-23] MEDS: InsuLIN REG 1unit/0.01ml Soln (100units/ml) SC SCH ×4 (00:22→18:00)
[2021-06-23] MEDS: ACCU-CHEK COMFORT CURVE STRIP VI SCH ×4 (00:31→18:00)
[2021-06-23] MEDS: HYDROmorphone HCL 2 MG/ML VL IV PRN ×4 (01:34→21:37)
[2021-06-23 05:11] VITALS: BP 119/76
[2021-06-23] MEDS: MEROPENEM 1GM IVPB 100 ML IV SCH ×3 (05:27→21:35)
[2021-06-23 07:31] LABS: Basophils # (auto) 0 10 ^3/uL (0-0.2); Basophils % (auto) 0.3 % (0.0-2.0); Eosinophils # (auto) 0.2 10 ^3/uL (0-0.8); Eosinophils % (auto) 1.7 % (0.0-7.0); Hematocrit 36.4 % (41.0-53.0); Hemoglobin 12.1 g/dL (13.5-17.5); Lymphocytes # (auto) 1.3 10 ^3/uL (0.4-5.4); Lymphocytes % (auto) 10.4 % (10.0-50.0); Mean Corpuscular Hemoglobin 29.5 pg (28.0-32.0); Mean Corpuscular Hgb Conc. 33.3 g/dL (32.0-36.0); Mean Corpuscular Volume 88.8 fL (80.0-100.0); Monocytes # (auto) 0.9 10 ^3/uL (0-1.3); Monocytes % (auto) 7.2 % (0.0-12.0); Neutrophils # (auto) 10.2 10 ^3/uL (1.6-8.6); Neutrophils % (auto) 80.4 % (37.0-80.0); Red Cell Distribution Width 14.2 % (11.8-14.3); White Blood Cell 12.6 10^3/uL (4.4-10.8)
[2021-06-23 07:57] LABS: Albumin 2.3 g/dL (3.4-5.0); Calcium 8.1 mg/dL (8.5-10.1); Potassium 4.1 mmol/L (3.5-5.1)
[2021-06-23 08:06] LABS: BUN/Creatinine Ratio 22.6; Bilirubin, Total 0.9 mg/dL (0.2-1.0); Magnesium 2.5 mg/dL (1.6-2.6); Phosphorus 2.9 mg/dL (2.5-4.90); Pre Albumin 6.9 mg/dL (20.0-40.0); Total Protein 6.4 g/dL (6.4-8.2)
[2021-06-23 09:00] VITALS: BP 120/79
[2021-06-23] MEDS: ENOXAPARIN SOD 40 MG/0.4 ML SYRINGE SC SCH (10:00)
[2021-06-23] MEDS: SODIUM CHLOR 0.9% PF (SALINE LOCK) 10ML VIAL/SYR IV SCH ×2 (10:00→21:36)
[2021-06-23] MEDS: PANTOPRAZOLE 40 MG/10 ML VIAL INJ IV SCH (10:00)
[2021-06-23 13:00] VITALS: BP 115/73
[2021-06-23 16:50] VITALS: BP 110/73
[2021-06-23] MEDS ORDERED: TPN PER PHARMACY IV NR ×10 (20:00)
[2021-06-23 22:08] VITALS: BP 111/74
[2021-06-24] MEDS: InsuLIN REG 1unit/0.01ml Soln (100units/ml) SC SCH ×4 (00:05→18:20)
[2021-06-24] MEDS: ACCU-CHEK COMFORT CURVE STRIP VI SCH ×4 (00:06→18:20)
[2021-06-24] MEDS: LACTATED RINGER'S 1,000 ML IV SCH ×2 (00:11→10:14)
[2021-06-24] MEDS: MORPHINE SULFATE INJECTION 2 MG/ML SYRG IV PRN (04:13)
[2021-06-24 05:10] VITALS: BP 112/76
[2021-06-24 06:08] LABS: Basophils # (auto) 0 10 ^3/uL (0-0.2); Basophils % (auto) 0.4 % (0.0-2.0); Eosinophils # (auto) 0.3 10 ^3/uL (0-0.8); Eosinophils % (auto) 2.7 % (0.0-7.0); Hemoglobin 12.9 g/dL (13.5-17.5); Lymphocytes % (auto) 9.8 % (10.0-50.0); Mean Corpuscular Hemoglobin 30.2 pg (28.0-32.0); Mean Corpuscular Hgb Conc. 33.9 g/dL (32.0-36.0); Mean Corpuscular Volume 88.9 fL (80.0-100.0); Monocytes # (auto) 0.8 10 ^3/uL (0-1.3); Monocytes % (auto) 7.3 % (0.0-12.0); Neutrophils # (auto) 8.5 10 ^3/uL (1.6-8.6); Neutrophils % (auto) 79.8 % (37.0-80.0); Red Blood Cells 4.27 10^6/uL (4.5-5.90); Red Cell Distribution Width 13.7 % (11.8-14.3); White Blood Cell 10.6 10^3/uL (4.4-10.8)
[2021-06-24 06:22] LABS: Potassium 4.4 mmol/L (3.5-5.1)
[2021-06-24 06:30] LABS: Albumin 2.4 g/dL (3.4-5.0); BUN/Creatinine Ratio 25.4; Bilirubin, Total 0.8 mg/dL (0.2-1.0); Calcium 8.2 mg/dL (8.5-10.1); Magnesium 2.4 mg/dL (1.6-2.6); Phosphorus 2.7 mg/dL (2.5-4.90)
[2021-06-24] MEDS: MEROPENEM 1GM IVPB 100 ML IV SCH ×3 (06:35→22:10)
[2021-06-24 08:33] VITALS: BP 110/72
[2021-06-24] MEDS: HYDROmorphone HCL 2 MG/ML VL IV PRN ×2 (09:09→22:11)
[2021-06-24] MEDS: PANTOPRAZOLE 40 MG/10 ML VIAL INJ IV SCH (10:14)
[2021-06-24] MEDS: SODIUM CHLOR 0.9% PF (SALINE LOCK) 10ML VIAL/SYR IV SCH ×2 (10:14→22:10)
[2021-06-24] MEDS: ENOXAPARIN SOD 40 MG/0.4 ML SYRINGE SC SCH (10:15)
[2021-06-24 12:39] VITALS: BP 112/75
[2021-06-24 16:50] VITALS: BP 112/72
[2021-06-24] MEDS ORDERED: TPN PER PHARMACY IV NR ×9 (20:00)
[2021-06-24 22:00] VITALS: BP 126/77
[2021-06-25] MEDS: LACTATED RINGER'S 1,000 ML IV SCH ×2 (01:40→12:14)
[2021-06-25 05:00] VITALS: BP 104/68
[2021-06-25] MEDS: MEROPENEM 1GM IVPB 100 ML IV SCH ×3 (06:06→22:30)
[2021-06-25] MEDS: InsuLIN REG 1unit/0.01ml Soln (100units/ml) SC SCH ×4 (06:26→18:05)
[2021-06-25] MEDS: ACCU-CHEK COMFORT CURVE STRIP VI SCH ×4 (06:26→18:03)
[2021-06-25 07:17] LABS: Albumin 2.5 g/dL (3.4-5.0); Calcium 8.4 mg/dL (8.5-10.1); Magnesium 2.7 mg/dL (1.6-2.6); Potassium 4.4 mmol/L (3.5-5.1)
[2021-06-25 07:21] LABS: BUN/Creatinine Ratio 30.2; Bilirubin, Total 0.7 mg/dL (0.2-1.0); Total Protein 7.2 g/dL (6.4-8.2)
[2021-06-25 09:00] VITALS: BP 110/74
[2021-06-25] MEDS: ENOXAPARIN SOD 40 MG/0.4 ML SYRINGE SC SCH (09:34)
[2021-06-25] MEDS: PANTOPRAZOLE 40 MG/10 ML VIAL INJ IV SCH (09:34)
[2021-06-25] MEDS: SODIUM CHLOR 0.9% PF (SALINE LOCK) 10ML VIAL/SYR IV SCH ×2 (09:35→22:30)
[2021-06-25] MEDS: HYDROmorphone HCL 2 MG/ML VL IV PRN (09:45)
[2021-06-25] MEDS: ONDANSETRON HCL 4 MG/2 ML VIAL IV PRN (09:45)
[2021-06-25] MEDS ORDERED: BISACODYL 10 MG RECT SUPP PR ONE (12:45)
[2021-06-25 13:00] VITALS: BP 112/72
[2021-06-25 16:42] VITALS: BP 118/73
[2021-06-25] MEDS: TPN PER PHARMACY IV NR ×10 (20:17)
[2021-06-25 22:00] VITALS: BP 108/73
[2021-06-26] MEDS: ACCU-CHEK COMFORT CURVE STRIP VI SCH ×5 (00:01→22:13)
[2021-06-26] MEDS: InsuLIN REG 1unit/0.01ml Soln (100units/ml) SC SCH ×5 (00:01→22:15)
[2021-06-26] MEDS: HYDROmorphone HCL 2 MG/ML VL IV PRN (03:14)
[2021-06-26] MEDS: ONDANSETRON HCL 4 MG/2 ML VIAL IV PRN ×4 (03:15→22:54)
[2021-06-26 05:00] VITALS: BP 102/70
[2021-06-26 05:25] LABS: Basophils # (auto) 0.1 10 ^3/uL (0-0.2); Basophils % (auto) 0.6 % (0.0-2.0); Eosinophils # (auto) 0.4 10 ^3/uL (0-0.8); Eosinophils % (auto) 4.2 % (0.0-7.0); Hematocrit 39.2 % (41.0-53.0); Hemoglobin 13.2 g/dL (13.5-17.5); Lymphocytes # (auto) 1.6 10 ^3/uL (0.4-5.4); Lymphocytes % (auto) 17.3 % (10.0-50.0); Mean Corpuscular Hgb Conc. 33.6 g/dL (32.0-36.0); Mean Corpuscular Volume 89.2 fL (80.0-100.0); Monocytes # (auto) 0.9 10 ^3/uL (0-1.3); Monocytes % (auto) 10.1 % (0.0-12.0); Neutrophils # (auto) 6.2 10 ^3/uL (1.6-8.6); Neutrophils % (auto) 67.8 % (37.0-80.0); Nucleated Red Blood Cells % 0.1 %; Red Cell Distribution Width 14.1 % (11.8-14.3); White Blood Cell 9.2 10^3/uL (4.4-10.8)
[2021-06-26 05:36] LABS: Albumin 2.6 g/dL (3.4-5.0); Calcium 8.6 mg/dL (8.5-10.1); Magnesium 2.8 mg/dL (1.6-2.6); Potassium 4.4 mmol/L (3.5-5.1)
[2021-06-26 05:41] LABS: BUN/Creatinine Ratio 31.9; Bilirubin, Total 0.6 mg/dL (0.2-1.0); Phosphorus 3.3 mg/dL (2.5-4.90); Total Protein 7.8 g/dL (6.4-8.2)
[2021-06-26] MEDS: MEROPENEM 1GM IVPB 100 ML IV SCH ×3 (06:42→22:13)
[2021-06-26 09:00] VITALS: BP 116/75
[2021-06-26] MEDS: PANTOPRAZOLE 40 MG/10 ML VIAL INJ IV SCH (10:04)
[2021-06-26] MEDS: ENOXAPARIN SOD 40 MG/0.4 ML SYRINGE SC SCH (10:04)
[2021-06-26] MEDS: SODIUM CHLOR 0.9% PF (SALINE LOCK) 10ML VIAL/SYR IV SCH ×2 (10:04→22:13)
[2021-06-26] MEDS: MORPHINE SULFATE INJECTION 2 MG/ML SYRG IV PRN ×2 (12:33→22:49)
[2021-06-26 13:00] VITALS: BP 112/72
[2021-06-26 16:46] VITALS: BP 119/72
[2021-06-26] MEDS: TPN PER PHARMACY IV NR ×10 (19:50)
[2021-06-26] MEDS ORDERED: TPN PER PHARMACY IV NR ×8 (20:00)
[2021-06-26 22:19] VITALS: BP 102/71
[2021-06-27 05:19] VITALS: BP 113/67
[2021-06-27 06:07] LABS: Basophils # (auto) 0 10 ^3/uL (0-0.2); Basophils % (auto) 0.6 % (0.0-2.0); Eosinophils # (auto) 0.3 10 ^3/uL (0-0.8); Eosinophils % (auto) 3.8 % (0.0-7.0); Hematocrit 39.3 % (41.0-53.0); Hemoglobin 13.2 g/dL (13.5-17.5); Lymphocytes # (auto) 1.9 10 ^3/uL (0.4-5.4); Lymphocytes % (auto) 22.2 % (10.0-50.0); Mean Corpuscular Hemoglobin 30.1 pg (28.0-32.0); Mean Corpuscular Hgb Conc. 33.6 g/dL (32.0-36.0); Mean Corpuscular Volume 89.7 fL (80.0-100.0); Monocytes # (auto) 0.9 10 ^3/uL (0-1.3); Monocytes % (auto) 10.8 % (0.0-12.0); Neutrophils # (auto) 5.2 10 ^3/uL (1.6-8.6); Neutrophils % (auto) 62.6 % (37.0-80.0); Nucleated Red Blood Cells % 0.1 %; Red Blood Cells 4.38 10^6/uL (4.5-5.90); Red Cell Distribution Width 13.8 % (11.8-14.3); White Blood Cell 8.4 10^3/uL (4.4-10.8)
[2021-06-27 06:27] LABS: Albumin 2.6 g/dL (3.4-5.0); BUN/Creatinine Ratio 25.3; Calcium 8.5 mg/dL (8.5-10.1); Magnesium 2.4 mg/dL (1.6-2.6); Potassium 4.2 mmol/L (3.5-5.1)
[2021-06-27 06:29] LABS: Bilirubin, Total 0.7 mg/dL (0.2-1.0); Phosphorus 3.3 mg/dL (2.5-4.90); Total Protein 7.3 g/dL (6.4-8.2)
[2021-06-27] MEDS: MEROPENEM 1GM IVPB 100 ML IV SCH ×3 (07:09→21:36)
[2021-06-27] MEDS: ACCU-CHEK COMFORT CURVE STRIP VI SCH (07:18)
[2021-06-27] MEDS: MORPHINE SULFATE INJECTION 2 MG/ML SYRG IV PRN ×2 (07:19→22:58)
[2021-06-27] MEDS: InsuLIN REG 1unit/0.01ml Soln (100units/ml) SC SCH (07:20)
[2021-06-27] MEDS: SODIUM CHLOR 0.9% PF (SALINE LOCK) 10ML VIAL/SYR IV SCH ×2 (09:02→21:36)
[2021-06-27] MEDS: ENOXAPARIN SOD 40 MG/0.4 ML SYRINGE SC SCH (09:02)
[2021-06-27] MEDS: PANTOPRAZOLE 40 MG/10 ML VIAL INJ IV SCH (09:02)
[2021-06-27 12:00] VITALS: BP 117/80
[2021-06-27 16:00] VITALS: BP 103/73
[2021-06-27] MEDS ORDERED: TPN PER PHARMACY IV NR ×9 (20:00)
[2021-06-27] MEDS: ONDANSETRON HCL 4 MG/2 ML VIAL IV PRN (21:47)
[2021-06-27 22:00] VITALS: BP 105/70
[2021-06-28] MEDS: HYDROmorphone HCL 2 MG/ML VL IV PRN ×2 (01:19→06:03)
[2021-06-28] MEDS: MORPHINE SULFATE INJECTION 2 MG/ML SYRG IV PRN ×2 (03:59→08:25)
[2021-06-28 05:00] VITALS: BP 116/76
[2021-06-28] MEDS: MEROPENEM 1GM IVPB 100 ML IV SCH ×3 (06:01→23:41)
[2021-06-28] MEDS: ONDANSETRON HCL 4 MG/2 ML VIAL IV PRN (06:03)
[2021-06-28 06:58] LABS: BUN/Creatinine Ratio 22.6; Calcium 9.1 mg/dL (8.5-10.1); Potassium 4.4 mmol/L (3.5-5.1)
[2021-06-28 06:59] LABS: Basophils # (auto) 0 10 ^3/uL (0-0.2); Basophils % (auto) 0.5 % (0.0-2.0); Eosinophils # (auto) 0.1 10 ^3/uL (0-0.8); Hemoglobin 13.4 g/dL (13.5-17.5); Lymphocytes # (auto) 1.6 10 ^3/uL (0.4-5.4); Mean Corpuscular Hemoglobin 30.1 pg (28.0-32.0); Mean Corpuscular Hgb Conc. 33.5 g/dL (32.0-36.0); Mean Corpuscular Volume 89.7 fL (80.0-100.0); Monocytes # (auto) 0.8 10 ^3/uL (0-1.3); Monocytes % (auto) 7.8 % (0.0-12.0); Neutrophils # (auto) 7.4 10 ^3/uL (1.6-8.6); Neutrophils % (auto) 74.7 % (37.0-80.0); Nucleated Red Blood Cells % 0.1 %; Red Blood Cells 4.46 10^6/uL (4.5-5.90)
[2021-06-28] MEDS: ENOXAPARIN SOD 40 MG/0.4 ML SYRINGE SC SCH (08:47)
[2021-06-28] MEDS: PANTOPRAZOLE 40 MG/10 ML VIAL INJ IV SCH (08:47)
[2021-06-28] MEDS: SODIUM CHLOR 0.9% PF (SALINE LOCK) 10ML VIAL/SYR IV SCH ×2 (08:47→22:47)
[2021-06-28 09:00] VITALS: BP 119/77
[2021-06-28 13:00] VITALS: BP 105/70
[2021-06-28 17:00] VITALS: BP 108/69
[2021-06-28 22:00] VITALS: BP 105/68
[2021-06-29 05:00] VITALS: BP 96/66
[2021-06-29] MEDS: MEROPENEM 1GM IVPB 100 ML IV SCH ×3 (06:42→22:04)
[2021-06-29] MEDS ORDERED: IOHEXOL 300 MG/ML 100ML BOTTLE IJ ONE (08:04)
[2021-06-29 09:00] VITALS: BP 107/74
[2021-06-29] MEDS: PANTOPRAZOLE 40 MG/10 ML VIAL INJ IV SCH (09:52)
[2021-06-29] MEDS: SODIUM CHLOR 0.9% PF (SALINE LOCK) 10ML VIAL/SYR IV SCH ×2 (09:52→22:04)
[2021-06-29] MEDS: ENOXAPARIN SOD 40 MG/0.4 ML SYRINGE SC SCH (09:52)
[2021-06-29 13:00] VITALS: BP 115/71
[2021-06-29 17:00] VITALS: BP 112/78
[2021-06-29 20:00] VITALS: BP 102/68
[2021-06-29 22:00] VITALS: BP 102/68
[2021-06-30 05:00] VITALS: BP 108/69
[2021-06-30 05:49] LABS: Basophils # (auto) 0.1 10 ^3/uL (0-0.2); Basophils % (auto) 1.1 % (0.0-2.0); Eosinophils # (auto) 0.2 10 ^3/uL (0-0.8); Eosinophils % (auto) 2.8 % (0.0-7.0); Hematocrit 41.4 % (41.0-53.0); Hemoglobin 13.8 g/dL (13.5-17.5); Mean Corpuscular Hemoglobin 29.8 pg (28.0-32.0); Mean Corpuscular Hgb Conc. 33.3 g/dL (32.0-36.0); Mean Corpuscular Volume 89.4 fL (80.0-100.0); Monocytes # (auto) 0.5 10 ^3/uL (0-1.3); Monocytes % (auto) 9.8 % (0.0-12.0); Neutrophils # (auto) 2.9 10 ^3/uL (1.6-8.6); Neutrophils % (auto) 51.3 % (37.0-80.0); Nucleated Red Blood Cells % 0.2 %; Red Blood Cells 4.63 10^6/uL (4.5-5.90); White Blood Cell 5.6 10^3/uL (4.4-10.8)
[2021-06-30] MEDS: MEROPENEM 1GM IVPB 100 ML IV SCH ×2 (05:50→14:00)
[2021-06-30 06:13] LABS: BUN/Creatinine Ratio 17.1; Calcium 8.9 mg/dL (8.5-10.1); Magnesium 2.8 mg/dL (1.6-2.6)
[2021-06-30 09:00] VITALS: BP 103/70
[2021-06-30] MEDS ORDERED: SACC250C PO (09:35)
[2021-06-30] MEDS ORDERED: LEVO500T31 PO (09:35)
[2021-06-30] MEDS: ENOXAPARIN SOD 40 MG/0.4 ML SYRINGE SC SCH (10:21)
[2021-06-30] MEDS: PANTOPRAZOLE 40 MG/10 ML VIAL INJ IV SCH (10:21)
[2021-06-30] MEDS: SODIUM CHLOR 0.9% PF (SALINE LOCK) 10ML VIAL/SYR IV SCH (10:24)
[2021-06-30 12:40] VITALS: BP 106/77
[2021-06-30 15:40] VITALS: BP 106/77
[2021-06-30 16:52] VITALS: BP 98/80
== END 2021-06-30 18:00 | disposition home or self-care (01) | DRG 720 ==
LOC: ER 13:41 → TELE 18:52 → TELE-WESTW 06-15 04:06 → WEST WING 06-25 17:21
PROVIDERS: ADMIT Nurse Practitioner Acute Care; ATTEND Internal Medicine
PROC: 02HV33Z Insertion of Infusion Device into Superior Vena Cava, Percutaneous Approach (ICD-10-PCS; principal; 2021-06-18)
PROC: B548ZZA Ultrasonography of Superior Vena Cava, Guidance (ICD-10-PCS; 2021-06-18)
PROC: 3E0336Z Introduction of Nutritional Substance into Peripheral Vein, Percutaneous Approach (ICD-10-PCS; 2021-06-18)
DX: A41.9 Sepsis, unspecified organism (principal); N17.0 Acute kidney failure with tubular necrosis; K85.11 Biliary acute pancreatitis with uninfected necrosis; I82.890 Acute embolism and thrombosis of other specified veins; K80.10 Calculus of gallbladder with chronic cholecystitis without obstruction; E83.39 Other disorders of phosphorus metabolism; E87.6 Hypokalemia; D69.59 Other secondary thrombocytopenia; R74.8 Abnormal levels of other serum enzymes; K76.0 Fatty (change of) liver, not elsewhere classified; Z20.822 Contact with and (suspected) exposure to COVID-19; I10 Essential (primary) hypertension; K86.3 Pseudocyst of pancreas; Z86.16 Personal history of COVID-19; Z82.49 Family history of ischemic heart disease and other diseases of the circulatory system; Z87.01 Personal history of pneumonia (recurrent)
CPT/HCPCS: 36415; 36569; 71045; 74176; 74177; 74178; 74181; 76705; 80048; 80053; 80061; 82040; 82150; 82962; 83036; 83605; 83690; 83735; 84100; 84478; 84484; 85007; 85025; 85027; 85610; 85730; 86141; 87040; 87426; 93005; 96361; 96374; 96375; C9113; G0378; J1815; J1885; J2185; J2405; J3480; J3490; J7060; J7131